=== PATIENT | male | born 1975 | race Caucasian/White ===

== ENCOUNTER → 2019-05-15 12:11 | Outpatient (CLI) | payer MEDICARE, MEDICAID, SELFPAY ==
[2019-05-15 13:05] LABS: Basophils % 0.4 % (0.1-2.0); Eosinophils # 0.1 K/mm3 (0.0-0.4); Eosinophils % 0.6 % (0.1-12.0); Hematocrit 48.8 % (42.0-52.0); Hemoglobin 16.1 g/dL (14.1-18.0); Lymphocytes # 0.9 K/mm3 (0.7-4.5); Lymphocytes % 10.2 % (10-50); Mean Corpuscular HGB Conc 32.9 g/dL (31.8-35.4); Mean Corpuscular Hemoglobin 36.5 pg (27.0-31.2); Mean Corpuscular Volume 110.9 fl (80-94); Mean Platelet Volume 7.6 fl (7.4-10.4); Monocytes # 0.9 K/mm3 (0.1-1.0); Monocytes % 9.7 % (1.7-9.3); Neutrophils # 7.2 K/mm3 (1.8-7.8); Neutrophils % 79.1 % (37.0-80.0); Platelet Count 450 K/mm3 (142-424); Red Cell Distribution Width 12.1 % (11.5-17.5); White Blood Count 9.1 K/mm3 (4.8-10.8)
[2019-05-15 14:01] LABS: Hemoglobin A1C 5.2 % (0.0-7.0)
[2019-05-15 14:06] LABS: Alanine Aminotransferase 117 U/L (12-78); Albumin Level 4.2 gm/dL (3.4-5.0); Albumin/Globulin Ratio 1.2 (1.1-1.8); Alkaline Phosphatase 54 U/L (46-116); Anion Gap 11.9 mEq/L (5-15); Aspartate Amino Transferase 82 U/L (15-37); Bilirubin,Total 2.1 mg/dL (0.2-1.0); Blood Urea Nitrogen 4 mg/dL (7-18); Calcium 9.8 mg/dL (8.5-10.1); Carbon Dioxide 32 mmol/L (21.0-32.0); Chloride 103 mmol/L (98-107); Chol/HDL Ratio 3.1 (1-3.5); Cholesterol 172 mg/dL (140-200); Estimated Glomerular Filt Rate 145 ml/min (>60); GFR (African American) 176 ML/MIN (>60); Globulin 3.5 gm/dl (1.3-3.2); Glucose 106 mg/dL (74-106); HDL Cholesterol 56 mg/dL (27-67); LDL Cholesterol 103 mg/dL (0-130); Potassium 3.9 mmoL/L (3.5-5.1); Sodium 143 mmol/L (136-145); Total Protein,Serum 7.7 gm/dL (6.4-8.2); Triglycerides 67 mg/dL (30-200); VLDL Cholesterol 13 mg/dL (0-40)
== END ==
DX: F20.0 Paranoid schizophrenia (principal); Z79.899 Other long term (current) drug therapy
CPT/HCPCS: 36415; 80053; 80061; 83036; 85025

== ENCOUNTER 2019-12-13 12:39 | Emergency (ER) | payer MEDICARE, MEDICAID, SELFPAY ==
[2019-12-13 12:41] VITALS: BP 145/103; PULSE 123; RESP 16; TEMP 37.2; O2SAT 98; BMI 20.3
--- NOTE | 2019-12-13 12:56 | XR_ITS ---
PROCEDURE: XR FOOT RT MIN 3V CLINICAL INDICATION: fall COMPARISON: XR TIBIA FIBULA RT 2V from 12/13/2019 FINDINGS: No fracture or dislocation. No lytic or blastic change. There is normal mineralization. The joint spaces are well-preserved. No significant degenerative/arthritic changes. No erosive changes evident. Other findings:None. IMPRESSION: Negative foot Dictated by: James Gilmore MD 12/13/2019 13:40 Electronically signed by James Gilmore MD in [place] 12/13/2019 13:40
--- NOTE | 2019-12-13 12:56 | XR_ITS ---
PROCEDURE: XR ANKLE RT MIN 3V CLINICAL INDICATION: fall posttraumatic pain and swelling COMPARISON: XR TIBIA FIBULA RT 2V from 12/13/2019 XR FOOT RT MIN 3V from 12/13/2019 FINDINGS: Soft tissue swelling is present at the lateral ankle. There is some cortical regularity involving the tip of the fibula most obvious on the AP view of the tib fib suspicious for nondisplaced fracture. CT or follow-up exam may confirm. The ankle mortise is preserved. No other significant anomalies are evident. IMPRESSION: Possible nondisplaced fracture of the distal fibula with overlying soft tissue swelling Dictated by: James Gilmore MD 12/13/2019 13:38 Electronically signed by James Gilmore MD in [place] 12/13/2019 13:38
--- NOTE | 2019-12-13 12:57 | XR_ITS ---
PROCEDURE: XR KNEE RT 3V CLINICAL INDICATION: fall Pain COMPARISON: No exams were available for comparison FINDINGS: No fracture or dislocation. No lytic or blastic change. There is normal mineralization. The joint spaces are well-preserved. No significant degenerative/arthritic changes. No erosive changes evident. Other findings:None. IMPRESSION: No acute findings. Dictated by: James Gilmore MD 12/13/2019 13:39 Electronically signed by James Gilmore MD in [place] 12/13/2019 13:39
--- NOTE | 2019-12-13 13:39 | HMH.EDGENADL ---
ED Disposition Clinical Impression: Avulsion fracture of lateral malleolus Qualifiers: Encounter type: initial encounter Fracture type: closed Laterality: right Qualified Code(s): S82.61XA - Displaced fracture of lateral malleolus of right fibula, initial encounter for closed fracture Right ankle sprain Qualifiers: Encounter type: initial encounter Involved ligament of ankle: unspecified ligament Qualified Code(s): S93.401A - Sprain of unspecified ligament of right ankle, initial encounter Disposition: Home, Self-Care Condition on Discharge: Good Instructions: How to Use Crutches, DI for Ankle Fracture, DI for Ankle Sprain, How to Take Care of Your Splint Additional Instructions: Additional instructions for FRACTURED (BROKEN) BONE: See Dr. Braun as soon as possible for further evaluation. Use crutches. No weightbearing on your right foot. Treat your splint like you would a cast: Do not get it wet (cover with a plastic bag while bathing or showering). If the splint feels too tight, you may loosen the edmond wrap covering it, but do not remove the splint. You may ice the fracture by applying an ice pack over the top of the splint, without removing the splint. Return to an emergency department immediately if you have uncontrollable pain, loss of feeling or inability to move your injured extremity. Additional instructions for CONTROLLED SUBSTANCES: You have been prescribed a medication that is a controlled substance. Controlled substances include pain medications known as opiates and sedative nerve medications known as benzodiazepines. Tramadol, fioricet, and gabapentin are also controlled substances. Some common opiates include: Codeine (such as Tylenol #3) Hydrocodone (Vicodin, Lortab, Lorcet, [place]) Oxycodone (Percocet, Percodan, Oxycodone, Oxy IR) Some common benzodiazepines include: Diazepam (Valium) Lorazepam (Ativan) Alprazolam (Xanax) Clonazepam (Klonopin) Oxazepam (Serax) All of these controlled substances are highly addictive and frequently abused. Misuse can and frequently does lead to addiction as well as overdose and . Medication should be stored in a locked cabinet or other secure storage unit. Do not store the medication in a motor vehicle. Short term supplies, 3 days or less, are prescribed because of the highly addictive nature of the medication. Any of the controlled substance medication NOT taken should be disposed of properly and NOT SAVED. The recommended method of disposing of unused medications is: Place the medicines in a sealable plastic bag. If the medicine is a solid, crush it or add water to dissolve it. Add something undesirable (cat litter, coffee grounds, etc.) Dispose of sealed bag in household trash Do not flush or pour unused medicines down a sink or drain. Controlled substances should not be shared, given away or sold. Because of the addictive nature and frequent abuse, these medications are sometimes stolen. These medications should be kept in a safe place where they cannot be stolen. Do not keep them in your car or purse. Lost or stolen prescriptions for controlled substances WILL NOT BE REFILLED in this emergency department, regardless of whether a police report was filed. Prescriptions: Hydrocod/Acet 5/325 mg [[place] 5/325mg tablet] 1 tab PO Q6HP PRN #10 tab PRN Reason: Pain Transmission Status: Sent to [facility] Referrals: Provider,MD Carl [Primary Care Provider] - Nora Braun MD [Physician] - - Critical Care Critical Care Time: No Attestation: On 12/13/19, the high probability of a clinically significant, sudden or life threatening deterioration of the following system(s) required my full and direct attention, intervention and personal management. The time I documented below is in addition to time spent performing reported procedures but includes the following listed in this critical care notation. Medical Decision Wendy
[2019-12-13 14:26] VITALS: BP 135/74; PULSE 102; RESP 16; TEMP 36.6; O2SAT 98
== END 2019-12-13 14:28 | disposition home or self-care (01) ==
PROVIDERS: Emergency Provider Emergency Medicine
DX: S93.401A Sprain of unspecified ligament of right ankle, initial encounter (principal); W01.0XXA Fall on same level from slipping, tripping and stumbling without subsequent striking against object, initial encounter; Y92.018 Other place in single-family (private) house as the place of occurrence of the external cause; F17.210 Nicotine dependence, cigarettes, uncomplicated
CPT/HCPCS: 29515; 73562; 73590; 73610; 73630; 99284

== ENCOUNTER 2019-12-17 12:18 | Outpatient (RCR) | payer MEDICARE, MEDICAID, SELFPAY | END 2019-12-17 12:45 | disposition home or self-care (01) | LOC: PT 12:18 | PROVIDERS: Visit Provider Orthopaedic Surgery | DX: S93.401A Sprain of unspecified ligament of right ankle, initial encounter (principal) ==

== ENCOUNTER → 2019-12-25 10:54 | Outpatient (CLI) | payer MEDICARE, MEDICAID, SELFPAY ==
[2019-12-25 11:28] LABS: Basophils % 0.5 % (0.1-2.0); Eosinophils % 0.6 % (0.1-12.0); Hematocrit 45.5 % (42.0-52.0); Hemoglobin 15.6 g/dL (14.1-18.0); Lymphocytes # 0.7 K/mm3 (0.7-4.5); Lymphocytes % 12.3 % (10-50); Mean Corpuscular HGB Conc 34.3 g/dL (31.8-35.4); Mean Corpuscular Hemoglobin 37.5 pg (27.0-31.2); Mean Corpuscular Volume 109.4 fl (80-94); Mean Platelet Volume 7.7 fl (7.4-10.4); Monocytes # 0.6 K/mm3 (0.1-1.0); Monocytes % 10.9 % (1.7-9.3); Neutrophils # 4.4 K/mm3 (1.8-7.8); Neutrophils % 75.6 % (37.0-80.0); Platelet Count 217 K/mm3 (142-424); Red Blood Count 4.16 M/mm3 (4.60-6.20); Red Cell Distribution Width 13.6 % (11.5-17.5); White Blood Count 5.9 K/mm3 (4.8-10.8)
[2019-12-25 12:46] LABS: Alanine Aminotransferase 61 U/L (12-78); Albumin/Globulin Ratio 1.4 (1.1-1.8); Alkaline Phosphatase 104 U/L (38-126); Anion Gap 16.6 mEq/L (5-15); Aspartate Amino Transferase 181 U/L (17-59); Bilirubin,Total 1.4 mg/dl (0.2-1.3); Blood Urea Nitrogen 4 mg/dl (9-20); Calcium 9.7 mg/dl (8.4-10.2); Carbon Dioxide 28 mmol/L (22.0-30.0); Chloride 98 mmol/L (98-107); Cholesterol 279 mg/dl (140-200); Estimated Glomerular Filt Rate 145 ml/min (>60); GFR (African American) 176 ML/MIN (>60); Globulin 3.5 g/dL (1.3-3.2); Glucose 103 mg/dl (74-100); Potassium 4.6 mmoL/L (3.5-5.1); Sodium 138 mmol/L (136-145); Total Protein,Serum 8.5 g/dl (6.3-8.2); Triglycerides 57 mg/dl (30-150); VLDL Cholesterol 11 mg/dL (0-40)
[2019-12-25 12:55] LABS: Chol/HDL Ratio 1.8 (1-3.5); HDL Cholesterol 152 mg/dl (40-60)
[2019-12-25 13:58] LABS: Hemoglobin A1C 5.1 % (4.0-6.0)
== END ==
PROVIDERS: Visit Provider Nurse Practitioner Psychiatric/Mental Health
DX: F20.0 Paranoid schizophrenia (principal); Z79.899 Other long term (current) drug therapy
CPT/HCPCS: 36415; 80053; 80061; 83036; 85025

== ENCOUNTER → 2019-12-31 13:04 | Outpatient (CLI) | payer MEDICARE, MEDICAID, SELFPAY ==
--- NOTE | 2019-12-31 13:15 | XR_ITS ---
PROCEDURE: XR ANKLE RT MIN 3V CLINICAL INDICATION: Ankle sprain FU COMPARISON: FINDINGS: There are no interval changes. Subtle cortical irregularity of the distal fibula is again noted with overlying soft tissue edema. Ankle mortise is intact. IMPRESSION: Subtle cortical irregularity of the distal fibular cortex which could represent cortical infraction injury, lateral soft tissue edema Dictated by: Juan C Harris 12/31/2019 14:46 Electronically signed by Juan C Harris in [place] 12/31/2019 14:46
== END ==
PROVIDERS: PCP Orthopaedic Surgery; Visit Provider Orthopaedic Surgery
DX: S93.401A Sprain of unspecified ligament of right ankle, initial encounter (principal)
CPT/HCPCS: 73610

== ENCOUNTER 2020-04-11 15:13 | Emergency (ER) | payer MEDICARE, MEDICAID, SELFPAY ==
[2020-04-11 15:55] VITALS: BP 123/86; PULSE 74; RESP 14; TEMP 36.7; O2SAT 98; BMI 19.9
--- NOTE | 2020-04-11 16:31 | HMH.EDUTC ---
[facility] [place] Clinical Impression: Pustular acne Disposition: Home, Self-Care Condition on Discharge: Good Instructions: Hidradenitis Suppurativa Additional Instructions: Use the medications as directed. Follow up with your primary care doctor. GO TO THE ER FOR ANY WORSENING SYMPTOMS OR CONCERNS. Prescriptions: Minocycline HCl [Minocycline HCl 100mg Tab*] 100 mg PO BID 14 Days #28 tab Transmission Status: Received by [facility] Referrals: PCP,No [Primary Care Provider] - Time of Disposition: 16:38 Medical Decision Making - Medical Records Medical records reviewed: No: I reviewed the patient's medical records. - Suraj Inquiry Pt receiving controlled substance: No Vital Signs: 04/11/20 15:55 04/11/20 17:22 Temperature 98.1 F 98.1 F Temperature Source Oral Oral Pulse Rate 74 Pulse Rate [Radial] 74 Respiratory Rate 14 14 Blood Pressure 123/86 Blood Pressure [Right Arm] 123/86 Blood Pressure Mean [Right Arm] 98 Blood Pressure Source Automatic Cuff Blood Pressure Source [Right Arm] Automatic Cuff Blood Pressure Position Sitting Blood Pressure Position [Right Arm] Sitting 02 Sat by Pulse Oximetry 98 Oxygen Delivery Method Room Air Room Air [facility] [place] - General Stated complaint: Rash on face Time Seen by Provider: 04/11/20 16:31 Mode of Arrival: Ambulatory Source of Information: Patient Limitations: No Limitations Description of Symptoms (Recalled from Triage Doc. by RN): 2-3 weeks ago rash to face that comes and goes. HEENT Symptoms (Recalled from RN notes): No Resp Symptoms (Recalled from RN notes): No Skin Symptoms (Recalled from RN notes): Yes MS Symptoms (Recalled from RN notes): No Functional Status (Recalled from RN notes): wnl - History of Present Illness Provider Complaint: he has a history of recurrent skin irritation of his face. In the past he has had to take doxycycline for these out breaks. He states that he has been out of refills on this. - Related Data Home Medications Medication Instructions Recorded Confirmed olanzapine 5 mg tablet 5 mg PO DAILY 12/17/19 12/31/19 trazodone 100 mg tablet 100 mg PO DAILY 12/17/19 12/31/19 Previous Rx's Medication Instructions Recorded Ketorolac Tromethamine [Toradol 10 mg PO Q6H 5 Days #20 tab 06/15/18 10mg tablet] Doxycycline Hyclate [Doxycycline 100 mg PO Q12 10 Days #20 cap 04/23/19 100mg Capsule] Minocycline HCl [Minocycline HCl 100 mg PO BID 14 Days #28 tab 09/13/19 100mg Tab*] Mupirocin [Bactroban 2% Ointment 1 applicatio TP TID 7 Days #1 tube 09/13/19 22gm tube] Hydrocod/Acet 5/325 mg [[place] 1 tab PO Q6HP PRN #10 tab 12/13/19 5/325mg tablet] Minocycline HCl [Minocycline HCl 100 mg PO BID 14 Days #28 tab 04/11/20 100mg Tab*] Allergies Allergy/AdvReac Type Severity Reaction Status Date / Time amoxicillin Allergy Verified 12/31/19 14:22 Penicillins Allergy Verified 12/31/19 14:22 - Worker's Comp Is this a Worker's Comp case?: No [facility] History - Hepatitis A Screen Drug use history?: No High risk sexual behaviors?: No History of sexually transmitted infection?: No Currently employed?: No Childcare worker?: No Do you have indoor plumbing?: Yes Do you have electricity?: Yes Attestation statement:: This patient has been screened for Hepatitis A risk factors. I have reviewed the patient's past medical history: Yes Medical History: Reports:: Anxiety, Depression Other Medical History: Reports: Other (ETOH abuse) Other Surgeries: Yes: Appendectomy - Social History Smoking Status: Current every day smoker Tobacco Type: smokeless tobacco # Packs/Day (cigarettes): 0 Alcohol Intake: never Alcohol Intake Frequency:: a few times a week Substance Use Type: marijuana Occupational Status: other Housing: house Household Members: family - Psychiatric History Pschychiatric History:: Reports:: Anxiety, Depression Family Hx:: No significant family histo
[2020-04-11 17:22] VITALS: BP 123/86; PULSE 74; RESP 14; TEMP 36.7; O2SAT 98
== END 2020-04-11 17:23 | disposition home or self-care (01) ==
PROVIDERS: Emergency Provider Nurse Practitioner Family
DX: L70.0 Acne vulgaris (principal); F41.8 Other specified anxiety disorders; F10.10 Alcohol abuse, uncomplicated; F17.290 Nicotine dependence, other tobacco product, uncomplicated; Z88.0 Allergy status to penicillin; Z79.899 Other long term (current) drug therapy
CPT/HCPCS: 99201

== ENCOUNTER → 2020-04-16 10:56 | Outpatient (CLI) | payer MEDICARE, SELFPAY ==
[2020-04-16 11:33] LABS: Basophils # 0.1 K/mm3 (0-0.2); Basophils % 0.6 % (0.1-2.0); Eosinophils # 0.2 K/mm3 (0.0-0.4); Eosinophils % 2.4 % (0.1-12.0); Hematocrit 47.4 % (42.0-52.0); Hemoglobin 15.6 g/dL (14.1-18.0); Lymphocytes # 1.5 K/mm3 (0.7-4.5); Lymphocytes % 16.2 % (10-50); Mean Corpuscular HGB Conc 32.9 g/dL (31.8-35.4); Mean Corpuscular Hemoglobin 34.9 pg (27.0-31.2); Mean Corpuscular Volume 106.1 fl (80-94); Mean Platelet Volume 7.2 fl (7.4-10.4); Monocytes # 0.9 K/mm3 (0.1-1.0); Monocytes % 8.9 % (1.7-9.3); Neutrophils # 6.9 K/mm3 (1.8-7.8); Neutrophils % 71.9 % (37.0-80.0); Platelet Count 424 K/mm3 (142-424); Red Blood Count 4.47 M/mm3 (4.60-6.20); Red Cell Distribution Width 12.7 % (11.5-17.5); White Blood Count 9.5 K/mm3 (4.8-10.8)
[2020-04-16 12:03] LABS: Chloride 102 mmol/L (98-107); Potassium 4.1 mmoL/L (3.5-5.1); Sodium 142 mmol/L (136-145)
[2020-04-16 12:05] LABS: Blood Urea Nitrogen 9 mg/dl (9-20); Estimated Glomerular Filt Rate 121 ml/min (>60)
[2020-04-16 12:06] LABS: Alanine Aminotransferase 23 U/L (12-78); Albumin/Globulin Ratio 1.3 (1.1-1.8); Alkaline Phosphatase 68 U/L (38-126); Anion Gap 13.1 mEq/L (5-15); Aspartate Amino Transferase 27 U/L (17-59); Bilirubin,Total 1.2 mg/dl (0.2-1.3); Calcium 9.7 mg/dl (8.4-10.2); Carbon Dioxide 31 mmol/L (22.0-30.0); Chol/HDL Ratio 4.7 (1-3.5); Cholesterol 180 mg/dl (140-200); GFR (African American) 146 ML/MIN (>60); Glucose 97 mg/dl (74-100); HDL Cholesterol 38 mg/dl (40-60); Triglycerides 120 mg/dl (30-150); VLDL Cholesterol 24 mg/dL (0-40)
[2020-04-16 12:17] LABS: Direct LDL Cholesterol 117.57 mg/dL (100-129)
[2020-04-16 12:59] LABS: Hemoglobin A1C 5.5 % (4.0-6.0)
== END ==
PROVIDERS: Visit Provider Nurse Practitioner Psychiatric/Mental Health
DX: F20.0 Paranoid schizophrenia (principal); Z79.899 Other long term (current) drug therapy
CPT/HCPCS: 36415; 80053; 80061; 83036; 85025

== ENCOUNTER → 2020-11-10 10:28 | Outpatient (POV) | payer MEDICARE, MEDICAID, SELFPAY ==
[2020-11-10 13:52] LABS: Basophils % 0.2 % (0.1-2.0); Eosinophils % 0.3 % (0.1-12.0); Hematocrit 44.8 % (42.0-52.0); Hemoglobin 15.5 g/dL (14.1-18.0); Lymphocytes # 0.7 K/mm3 (0.7-4.5); Lymphocytes % 9.8 % (10-50); Mean Corpuscular HGB Conc 34.6 g/dL (31.8-35.4); Mean Corpuscular Hemoglobin 36.2 pg (27.0-31.2); Mean Corpuscular Volume 104.5 fl (80-94); Mean Platelet Volume 9.5 fl (7.4-10.4); Monocytes # 0.8 K/mm3 (0.1-1.0); Monocytes % 11.2 % (1.7-9.3); Neutrophils # 5.5 K/mm3 (1.8-7.8); Neutrophils % 78.6 % (37.0-80.0); Platelet Count 270 K/mm3 (142-424); Red Blood Count 4.28 M/mm3 (4.60-6.20); Red Cell Distribution Width 13.2 % (11.5-17.5); White Blood Count 7.1 K/mm3 (4.8-10.8)
[2020-11-10 14:28] LABS: Alanine Aminotransferase 104 U/L (12-78); Albumin Level 4.6 g/dl (3.5-5.0); Albumin/Globulin Ratio 1.5 (1.1-1.8); Alkaline Phosphatase 99 U/L (38-126); Anion Gap 11.9 mEq/L (5-15); Aspartate Amino Transferase 164 U/L (17-59); Bilirubin,Total 1.8 mg/dl (0.2-1.3); Blood Urea Nitrogen 4 mg/dl (9-20); Calcium 9.4 mg/dl (8.4-10.2); Carbon Dioxide 26 mmol/L (22.0-30.0); Chloride 106 mmol/L (98-107); Estimated Glomerular Filt Rate 121 ml/min (>60); GFR (African American) 146 ML/MIN (>60); Glucose 105 mg/dl (74-100); Potassium 3.9 mmoL/L (3.5-5.1); Sodium 140 mmol/L (136-145); Total Protein,Serum 7.6 g/dl (6.3-8.2)
[2020-11-10 15:03] LABS: Ferritin 427 ng/ml (17.9-464)
[2020-11-10 15:21] LABS: Total Iron Binding Capacity 221 ug/dL (261-462)
[2020-11-10 16:13] LABS: Iron 427 ug/dL (49-181)
[2020-11-10 16:42] LABS: INR 0.91 (0.9-1.1); Prothrombin Time 10.8 seconds (10.1-12.5)
[2020-11-12 13:06] LABS: Immunoglobulin A, Qn 205 mg/dL (90-386); Immunoglobulin G, Qn 1223 mg/dL (603-1613)
[2020-11-13 12:48] LABS: Deamidated Gliadin Abs, IgA 4 units (0-19); Deamidated Gliadin Abs, IgG 2 units (0-19); Endomysial IgA Antibody Negative (Negative); Immunoglobulin M, Qn 150 mg/dL (20-172); Tissue Transglutaminase IgA Ab <2 U/mL (0-3); Tissue Transglutaminase IgG Ab 6 U/mL (0-5)
[2020-11-14 00:07] LABS: ALT (SGPT) P5P 99 IU/L (0-55); AST (SGOT) P5P 148 IU/L (0-40); Alpha 2-Macroglobulins, Qn 164 mg/dL (110-276); Apolipoprotein A-1 151 mg/dL (101-178); Bilirubin, Total 0.8 mg/dL (0.0-1.2); Cholesterol, Total 220 mg/dL (100-199); Fibrosis Score 0.42 (0.00-0.21); Fibrosis Stage F1-F2 (.); GGT 237 IU/L (0-65); Glucose 96 mg/dL (65-99); Haptoglobin 98 mg/dL (23-355); Steatosis Score 0.62 (0.00-0.30); Triglycerides 96 mg/dL (0-149)
[2020-11-14 10:50] LABS: Reticulin IgA Antibody Negative titer (Neg:<1:2.5)
== END ==
PROVIDERS: Visit Provider Nurse Practitioner Family
DX: F10.10 Alcohol abuse, uncomplicated (principal); R94.5 Abnormal results of liver function studies; R74.8 Abnormal levels of other serum enzymes
CPT/HCPCS: 36415; 80053; 82728; 82784; 83516; 83540; 83550; 85025; 85610; 86255; 86256

== ENCOUNTER → 2020-11-19 08:20 | Outpatient (CLI) | payer MEDICARE, MEDICAID, SELFPAY ==
--- NOTE | 2020-11-19 08:22 | US_ITS ---
PROCEDURE: US ABDOMEN LIMITED CLINICAL INDICATION: ALCOHOL ABUSE,ABN LFT COMPARISON: No exams were available for comparison FINDINGS: PANCREAS: The visualized pancreas is unremarkable. The tail is partially obscured. LIVER: Diffuse fatty infiltration of the liver is noted. No focal liver lesions within the limitations of the study. no intrahepatic biliary ductal dilatation evident. There is appropriate direction of blood flow within a non dilated portal vein RIGHT KIDNEY: Unremarkable. Normal size and echogenicity. No hydronephrosis GALLBLADDER: There is a focal hyperechoic lesion noted within the gallbladder in the non dependent portion measuring 0.4 centimeters, likely represents a gallbladder polyp. Gallbladder wall thickening measuring up to 0.3 centimeters noted. The common bile duct measures 0.3 centimeters. IMPRESSION: Hepatic steatosis. Findings are suggestive of gallbladder polyp measuring 4 millimeters. Dictated by: Nuzhat Jon 11/19/2020 11:40 Nuzhat Jon in [place] 11/19/2020 11:40
== END ==
PROVIDERS: PCP Nurse Practitioner Family; Visit Provider Nurse Practitioner Family
DX: R94.5 Abnormal results of liver function studies (principal); F10.10 Alcohol abuse, uncomplicated
CPT/HCPCS: 76705

== ENCOUNTER 2021-02-22 11:27 | Emergency (ER) | payer MEDICARE, MEDICAID, SELFPAY ==
--- NOTE | 2021-02-22 11:54 | XR_ITS ---
PROCEDURE INFORMATION: Exam: XR Right Ankle Exam date and time: 02/22/2021 11:54 AM Age: 46 years old Clinical indication: Injury or trauma; Blunt trauma; Patient HX: Right ankle pain due to fall. ; Additional info: Fall, ankle and foot pain TECHNIQUE: Imaging protocol: XR Right ankle. Views: 3 or more views. COMPARISON: DX XR ANKLE RT MIN 3V 12/31/2019 1:32 PM FINDINGS: Bones/joints: There is no evidence of acute fracture.There is no evidence of malalignment or dislocation. There may be healing/healed avulsion fracture from the distal fibula. Soft tissues: Mild bimalleolar soft tissue swelling IMPRESSION: 1. There is no evidence of acute fracture.There is no evidence of malalignment or dislocation. 2. There may be healing/healed avulsion fracture from the distal fibula.
--- NOTE | 2021-02-22 11:54 | XR_ITS ---
PROCEDURE INFORMATION: Exam: XR Left Knee Exam date and time: 02/22/2021 11:54 AM Age: 46 years old Clinical indication: Injury or trauma; Blunt trauma; Patient HX: Left knee pain due to fall. ; Additional info: Fall, knee pain TECHNIQUE: Imaging protocol: XR Left knee. Views: 3 views. COMPARISON: No relevant prior studies available. FINDINGS: Bones/joints: There is no evidence of acute fracture.There is no evidence of malalignment or dislocation. Soft tissues: Normal. IMPRESSION: There is no evidence of acute fracture.There is no evidence of malalignment or dislocation.
--- NOTE | 2021-02-22 11:54 | XR_ITS ---
PROCEDURE INFORMATION: Exam: XR Right Foot Exam date and time: 02/22/2021 11:54 AM Age: 46 years old Clinical indication: Injury or trauma; Blunt trauma; Patient HX: Right foot pain due to fall. ; Additional info: Ankle and foot pain, fall TECHNIQUE: Imaging protocol: XR Right foot. Views: 3 or more views. COMPARISON: CR XR FOOT RT MIN 3V 12/13/2019 1:06 PM FINDINGS: Bones/joints: There is no evidence of acute fracture.There is no evidence of malalignment or dislocation. Soft tissues: Normal. IMPRESSION: There is no evidence of acute fracture.There is no evidence of malalignment or dislocation.
--- NOTE | 2021-02-22 11:56 | HMH.EDUTC ---
[facility] [place]ression: Right foot pain Right ankle pain Qualifiers: Chronicity: acute Qualified Code(s): M25.571 - Pain in right ankle and joints of right foot Left knee pain Qualifiers: Chronicity: acute Qualified Code(s): M25.562 - Pain in left knee Ankle sprain Qualifiers: Encounter type: initial encounter Involved ligament of ankle: unspecified ligament Laterality: right Qualified Code(s): S93.401A - Sprain of unspecified ligament of right ankle, initial encounter Fracture of fifth toe, right, closed Qualifiers: Encounter type: initial encounter Qualified Code(s): S92.501A - Displaced unspecified fracture of right lesser toe(s), initial encounter for closed fracture Disposition: Still a Patient Condition on Discharge: Good Instructions: DI for Toe Fracture, DI for Knee Pain Additional Instructions: Rest the extremity, apply ice for 15 minutes as tolerated three or four times per day, Elevate the extremity as tolerated while you are resting. Take ibuprofen for pain. I sent in a prescription to your pharmacy. Follow up with Dr. Garza (podiatry). I put in a referral but you need to call her office and schedule an appointment. Follow up with your regular doctor. GO TO THE ER FOR ANY WORSENING SYMPTOMS Prescriptions: Ibuprofen [Ibuprofen 600mg Tablet] 600 mg PO Q6HP PRN #30 tab PRN Reason: Mild Pain Transmission Status: Received by [email or web address] Referrals: Betsy Felix APRN [Primary Care Provider] - Hali Garza DPM [Staff Physician] - Time of Disposition: 13:02 Medical Decision Making - Medical Records Medical records reviewed: No: I reviewed the patient's medical records. - Suraj Inquiry Pt receiving controlled substance: No Vital Signs: 02/22/21 12:58 02/22/21 13:02 Temperature 97.9 F 98 F Temperature Source Oral Pulse Rate 85 Pulse Rate [Left] 89 Respiratory Rate 20 18 Blood Pressure 0/0 L Blood Pressure [Right Arm] 127/82 Blood Pressure Mean [Right Arm] 97 02 Sat by Pulse Oximetry 99 - Radiology Data #1 Image(s): Foot/Toes Image Reviewed: Yes I reviewed the patient's radiology image, Yes I have reviewed radiologist's interpretation Preliminary Findings: No Fracture Seen PROCEDURE INFORMATION: Exam: XR Right Foot Exam date and time: 02/22/2021 11:54 AM Age: 46 years old Clinical indication: Injury or trauma; Blunt trauma; Patient HX: Right foot pain due to fall. ; Additional info: Ankle and foot pain, fall TECHNIQUE: Imaging protocol: XR Right foot. Views: 3 or more views. COMPARISON: CR XR FOOT RT MIN 3V 12/13/2019 1:06 PM FINDINGS: Bones/joints: There is no evidence of acute fracture.There is no evidence of malalignment or dislocation. Soft tissues: Normal. IMPRESSION: There is no evidence of acute fracture.There is no evidence of malalignment or dislocation. #2 Image(s): Ankle Image Reviewed: Yes I reviewed the patient's radiology image, Yes I have reviewed radiologist's interpretation Preliminary Findings: Abnormal, No Fracture Seen PROCEDURE INFORMATION: Exam: XR Right Ankle Exam date and time: 02/22/2021 11:54 AM Age: 46 years old Clinical indication: Injury or trauma; Blunt trauma; Patient HX: Right ankle pain due to fall. ; Additional info: Fall, ankle and foot pain TECHNIQUE: Imaging protocol: XR Right ankle. Views: 3 or more views. COMPARISON: DX XR ANKLE RT MIN 3V 12/31/2019 1:32 PM FINDINGS: Bones/joints: There is no evidence of acute fracture.There is no evidence of malalignment or dislocation. There may be healing/healed avulsion fracture from the distal fibula. Soft tissues: Mild bimalleolar soft tissue swelling IMPRESSION: 1. There is no evidence of acute fracture.There is no evidence of malalignment or dislocation. 2. There may be healing/healed avulsion fracture from the dista
[2021-02-22 12:58] VITALS: BP 127/82; PULSE 89; RESP 20; TEMP 36.6; O2SAT 99; BMI 22.2
[2021-02-22 13:02] VITALS: BP 0/0; PULSE 85; RESP 18; TEMP 36.6
== END 2021-02-22 13:10 | disposition still patient (30) ==
PROVIDERS: Emergency Provider Nurse Practitioner Family; PCP Nurse Practitioner Family
DX: S93.401A Sprain of unspecified ligament of right ankle, initial encounter (principal); S92.501A Displaced unspecified fracture of right lesser toe(s), initial encounter for closed fracture; W01.0XXA Fall on same level from slipping, tripping and stumbling without subsequent striking against object, initial encounter; Y92.019 Unspecified place in single-family (private) house as the place of occurrence of the external cause; F41.8 Other specified anxiety disorders
CPT/HCPCS: 29515; G0463; 73562; 73610; 73630; 99202

== ENCOUNTER 2021-04-04 15:17 | Emergency (ER) | payer MEDICARE, MEDICAID, SELFPAY ==
[2021-04-04 15:40] VITALS: BP 110/73; PULSE 120; RESP 20; TEMP 36.9; O2SAT 98; BMI 22.2
--- NOTE | 2021-04-04 15:52 | XR_ITS ---
PROCEDURE INFORMATION: Exam: XR Left Knee Exam date and time: 04/04/2021 3:52 PM Age: 46 years old Clinical indication: Left; Patient HX: Pain after a fall a couple weeks ago, yesterday twisted knee, pain medially TECHNIQUE: Imaging protocol: XR Left knee. Views: 3 views. COMPARISON: CR XR KNEE LT 3V 02/22/2021 12:03 PM FINDINGS: Bones/joints: There is no evidence of acute fracture.There is no evidence of malalignment or dislocation. Soft tissues: Normal. IMPRESSION: There is no evidence of acute fracture.There is no evidence of malalignment or dislocation.
--- NOTE | 2021-04-04 16:21 | HMH.EDUTC ---
[facility] – [place] Clinical Impression: Left anterior knee pain Disposition: Home, Self-Care Condition on Discharge: Good Instructions: DI for Knee Pain Prescriptions: methylPREDNISolone [Medrol 4mg tab] 4 mg PO DIRECTED #21 tab Transmission Status: Pending to [facility] Referrals: Betsy Felix APRN [Primary Care Provider] - Time of Disposition: 16:37 Medical Decision Making - Suraj Inquiry Pt receiving controlled substance: No Vital Signs: 04/04/21 15:40 Temperature 98.5 F Temperature Source Oral Pulse Rate [Right Brachial] 120 H Respiratory Rate 20 Blood Pressure [Right Arm] 110/73 Blood Pressure Mean [Right Arm] 85 Blood Pressure Source [Right Arm] Automatic Cuff Blood Pressure Position [Right Arm] Sitting 02 Sat by Pulse Oximetry 98 Oxygen Delivery Method Room Air Orders (Tests/Meds): ORDERS Category Date Time Status XR knee LT 3V Stat Exams 04/04/21 15:52 Taken - Radiology Data #1 Image(s): Knee Image Reviewed: Yes I reviewed the patient's radiology image Preliminary Findings: Abnormal (effusion) Medical Decision Narrative: Patient declined Depo Medrol or Toradol injection Requested Lortab 5, which was declined [facility] [place] HPI - General Stated complaint: Pop in left leg pain no accident Time Seen by Provider: 04/04/21 16:33 Mode of Arrival: Ambulatory Source of Information: Patient Limitations: No Limitations Description of Symptoms (Recalled from Triage Doc. by RN): PATIENT C/O PAIN AND POPPING TO LEFT KNEE HEENT Symptoms (Recalled from RN notes): No Resp Symptoms (Recalled from RN notes): No Skin Symptoms (Recalled from RN notes): No MS Symptoms (Recalled from RN notes): Yes Functional Status (Recalled from RN notes): WNL - History of Present Illness Provider Complaint: Patient knelt in floor last night and felt pop in his knee. Now knee is swollen, hot, painful. No redness. Onset (ago): day(s) (1) Location: left, lower extremity Relieving factors: immobilization Exacerbating factors: movement Treatments prior to arrival: none - Related Data Home Medications Medication Instructions Recorded Confirmed olanzapine 5 mg tablet 5 mg PO DAILY 12/17/19 12/31/19 trazodone 100 mg tablet 100 mg PO DAILY 12/17/19 12/31/19 Previous Rx's Medication Instructions Recorded Ketorolac Tromethamine [Toradol 10 mg PO Q6H 5 Days #20 tab 06/15/18 10mg tablet] Doxycycline Hyclate [Doxycycline 100 mg PO Q12 10 Days #20 cap 04/23/19 100mg Capsule] Minocycline HCl [Minocycline HCl 100 mg PO BID 14 Days #28 tab 09/13/19 100mg Tab*] Mupirocin [Bactroban 2% Ointment 1 applicatio TP TID 7 Days #1 tube 09/13/19 22gm tube] Hydrocod/Acet 5/325 mg [[place] 1 tab PO Q6HP PRN #10 tab 12/13/19 5/325mg tablet] Minocycline HCl [Minocycline HCl 100 mg PO BID 14 Days #28 tab 04/11/20 100mg Tab*] Ibuprofen [Ibuprofen 600mg 600 mg PO Q6HP PRN #30 tab 02/22/21 Tablet] methylPREDNISolone [Medrol 4mg 4 mg PO DIRECTED #21 tab 04/04/21 tab] Allergies Allergy/AdvReac Type Severity Reaction Status Date / Time amoxicillin Allergy Verified 12/31/19 14:22 Penicillins Allergy Verified 12/31/19 14:22 - Worker's Comp Is this a Worker's Comp case?: No [facility] History - Hepatitis A Screen Drug use history?: No High risk sexual behaviors?: No History of sexually transmitted infection?: No Currently employed?: No Childcare worker?: No Do you have indoor plumbing?: Yes Do you have electricity?: Yes Attestation statement:: This patient has been screened for Hepatitis A risk factors. I have reviewed the patient's past medical history: Yes Medical History: Reports:: Anxiety, Depression Other Medical History: Reports: Other (ETOH abuse) Other Surgeries: Yes: Appendectomy - Social History Smoking Status: Current every day smoker Tobacco Type: smokeless tobacco # Packs/Day (cigarettes): 0 Alcohol Intake: never Alcohol Intake F
[2021-04-04 16:40] VITALS: BP 110/73; PULSE 120; RESP 20; TEMP 36.9; O2SAT 98
== END 2021-04-04 16:53 | disposition home or self-care (01) ==
PROVIDERS: Emergency Provider Physician Assistant; PCP Nurse Practitioner Family
DX: M25.562 Pain in left knee (principal); F17.210 Nicotine dependence, cigarettes, uncomplicated; F41.8 Other specified anxiety disorders
CPT/HCPCS: G0463; 73562; 99202

== ENCOUNTER → 2021-07-29 13:54 | Outpatient (CLI) | payer MEDICARE, MEDICAID, SELFPAY ==
[2021-07-29 14:31] LABS: Basophils # 0.1 K/mm3 (0-0.2); Basophils % 0.6 % (0.1-2.0); Eosinophils # 0.1 K/mm3 (0.0-0.4); Eosinophils % 0.9 % (0.1-12.0); Hematocrit 44.5 % (42.0-52.0); Hemoglobin 14.7 g/dL (14.1-18.0); Lymphocytes # 1.7 K/mm3 (0.7-4.5); Lymphocytes % 17.5 % (10-50); Mean Corpuscular HGB Conc 33.1 g/dL (31.8-35.4); Mean Corpuscular Hemoglobin 36.1 pg (27.0-31.2); Mean Corpuscular Volume 108.9 fl (80-94); Mean Platelet Volume 8.3 fl (7.4-10.4); Monocytes % 10.3 % (1.7-9.3); Neutrophils # 6.9 K/mm3 (1.8-7.8); Neutrophils % 70.6 % (37.0-80.0); Platelet Count 389 K/mm3 (142-424); Red Blood Count 4.09 M/mm3 (4.60-6.20); Red Cell Distribution Width 12.7 % (11.5-17.5); White Blood Count 9.8 K/mm3 (4.8-10.8)
[2021-07-29 15:06] LABS: Alanine Aminotransferase 98 U/L (12-78); Albumin Level 4.7 g/dl (3.5-5.0); Albumin/Globulin Ratio 1.7 (1.1-1.8); Alkaline Phosphatase 53 U/L (38-126); Anion Gap 14.5 mEq/L (5-15); Aspartate Amino Transferase 72 U/L (17-59); Bilirubin,Total 1.6 mg/dl (0.2-1.3); Blood Urea Nitrogen 9 mg/dl (9-20); Calcium 9.5 mg/dl (8.4-10.2); Carbon Dioxide 27 mmol/L (22.0-30.0); Chloride 100 mmol/L (98-107); Estimated Glomerular Filt Rate 90 ml/min (>60); GFR (African American) 109 ML/MIN (>60); Globulin 2.8 g/dL (1.3-3.2); Glucose 107 mg/dl (74-100); Potassium 3.5 mmoL/L (3.5-5.1); Sodium 138 mmol/L (136-145); Total Protein,Serum 7.5 g/dl (6.3-8.2)
== END ==
PROVIDERS: PCP Nurse Practitioner Family; Visit Provider Nurse Practitioner Family
DX: R94.5 Abnormal results of liver function studies (principal); F10.10 Alcohol abuse, uncomplicated; K70.0 Alcoholic fatty liver
CPT/HCPCS: 36415; 80053; 85025

== ENCOUNTER → 2022-01-29 10:08 | Outpatient (CLI) | payer MEDICARE, MEDICAID, SELFPAY ==
[2022-01-29 10:45] LABS: Basophils % 0.4 % (0.1-2.0); Eosinophils # 0.1 K/mm3 (0.0-0.4); Eosinophils % 0.7 % (0.1-12.0); Hematocrit 40.1 % (42.0-52.0); Hemoglobin 13.8 g/dL (14.1-18.0); Lymphocytes # 1.2 K/mm3 (0.7-4.5); Lymphocytes % 15.2 % (10-50); Mean Corpuscular HGB Conc 34.4 g/dL (31.8-35.4); Mean Corpuscular Hemoglobin 35.5 pg (27.0-31.2); Mean Corpuscular Volume 103.1 fl (80-94); Mean Platelet Volume 7.2 fl (7.4-10.4); Monocytes # 0.8 K/mm3 (0.1-1.0); Monocytes % 10.7 % (1.7-9.3); Neutrophils # 5.7 K/mm3 (1.8-7.8); Neutrophils % 73.1 % (37.0-80.0); Platelet Count 375 K/mm3 (142-424); Red Blood Count 3.89 M/mm3 (4.60-6.20); Red Cell Distribution Width 12.6 % (11.5-17.5); White Blood Count 7.8 K/mm3 (4.8-10.8)
[2022-01-29 10:57] LABS: Chloride 105 mmol/L (98-107)
[2022-01-29 10:58] LABS: Potassium 3.5 mmoL/L (3.5-5.1); Sodium 139 mmol/L (136-145)
[2022-01-29 11:00] LABS: Alanine Aminotransferase 118 U/L (12-78); Aspartate Amino Transferase 89 U/L (17-59); Blood Urea Nitrogen 7 mg/dl (9-20); Estimated Glomerular Filt Rate 103 ml/min (>60); GFR (African American) 124 ML/MIN (>60)
[2022-01-29 11:01] LABS: Albumin Level 4.6 g/dl (3.5-5.0); Albumin/Globulin Ratio 1.6 (1.1-1.8); Alkaline Phosphatase 61 U/L (38-126); Anion Gap 12.5 mEq/L (5-15); Bilirubin,Total 1.5 mg/dl (0.2-1.3); Calcium 9.2 mg/dl (8.4-10.2); Carbon Dioxide 25 mmol/L (22.0-30.0); Globulin 2.8 g/dL (1.3-3.2); Glucose 111 mg/dl (74-100); Iron 62 ug/dL (49-181); Total Protein,Serum 7.4 g/dl (6.3-8.2)
[2022-01-29 11:11] LABS: Total Iron Binding Capacity 231 ug/dL (261-462)
[2022-01-29 11:38] LABS: Ferritin 367 ng/ml (17.9-464)
== END ==
PROVIDERS: PCP Nurse Practitioner Family; Visit Provider Nurse Practitioner Family
DX: R94.5 Abnormal results of liver function studies (principal); K70.9 Alcoholic liver disease, unspecified; K70.0 Alcoholic fatty liver; F10.10 Alcohol abuse, uncomplicated
CPT/HCPCS: 36415; 80053; 81256; 82728; 83540; 83550; 85025

== ENCOUNTER → 2022-08-06 10:47 | Outpatient (CLI) | payer MEDICARE, MEDICAID, SELFPAY ==
[2022-08-06 11:29] LABS: Basophils % 0.6 % (0.1-2.0); Eosinophils # 0.1 K/mm3 (0.0-0.4); Eosinophils % 1.3 % (0.1-12.0); Hematocrit 44.4 % (42.0-52.0); Hemoglobin 14.1 g/dL (14.1-18.0); Lymphocytes # 1.3 K/mm3 (0.7-4.5); Lymphocytes % 16.4 % (10-50); Mean Corpuscular HGB Conc 31.8 g/dL (31.8-35.4); Mean Corpuscular Hemoglobin 34.9 pg (27.0-31.2); Mean Corpuscular Volume 109.6 fl (80-94); Mean Platelet Volume 7.9 fl (7.4-10.4); Monocytes # 0.7 K/mm3 (0.1-1.0); Monocytes % 9.3 % (1.7-9.3); Neutrophils # 5.7 K/mm3 (1.8-7.8); Neutrophils % 72.5 % (37.0-80.0); Platelet Count 471 K/mm3 (142-424); Red Blood Count 4.05 M/mm3 (4.60-6.20); Red Cell Distribution Width 12.6 % (11.5-17.5); White Blood Count 7.9 K/mm3 (4.8-10.8)
[2022-08-06 12:38] LABS: Alanine Aminotransferase 96 U/L (12-78); Albumin Level 4.4 g/dl (3.5-5.0); Albumin/Globulin Ratio 1.4 (1.1-1.8); Alkaline Phosphatase 48 U/L (38-126); Anion Gap 12.3 mEq/L (5-15); Aspartate Amino Transferase 67 U/L (17-59); Bilirubin,Total 1.3 mg/dl (0.2-1.3); Blood Urea Nitrogen 9 mg/dl (9-20); Carbon Dioxide 29 mmol/L (22.0-30.0); Chloride 105 mmol/L (98-107); Estimated Glomerular Filt Rate 90 ml/min (>60); GFR (African American) 109 ML/MIN (>60); Globulin 3.1 g/dL (1.3-3.2); Glucose 104 mg/dl (74-100); Potassium 3.3 mmoL/L (3.5-5.1); Sodium 143 mmol/L (136-145); Total Protein,Serum 7.5 g/dl (6.3-8.2)
== END ==
PROVIDERS: PCP Nurse Practitioner Family; Visit Provider Nurse Practitioner Family
DX: F10.10 Alcohol abuse, uncomplicated (principal); K70.9 Alcoholic liver disease, unspecified; R94.5 Abnormal results of liver function studies
CPT/HCPCS: 36415; 80053; 85025

== ENCOUNTER → 2023-02-21 10:13 | Outpatient (CLI) | payer MEDICARE, MEDICAID, SELFPAY ==
[2023-02-21 10:46] LABS: Basophils % 0.3 % (0.1-2.0); Eosinophils # 0.1 K/mm3 (0.0-0.4); Eosinophils % 1.3 % (0.1-12.0); Hemoglobin 14.8 g/dL (14.1-18.0); Lymphocytes # 0.9 K/mm3 (0.7-4.5); Lymphocytes % 24.2 % (10-50); Mean Corpuscular HGB Conc 31.5 g/dL (31.8-35.4); Mean Corpuscular Hemoglobin 34.2 pg (27.0-31.2); Mean Corpuscular Volume 108.6 fl (80-94); Mean Platelet Volume 7.9 fl (7.4-10.4); Monocytes # 0.6 K/mm3 (0.1-1.0); Monocytes % 14.5 % (1.7-9.3); Neutrophils # 2.3 K/mm3 (1.8-7.8); Neutrophils % 59.8 % (37.0-80.0); Platelet Count 304 K/mm3 (142-424); Red Blood Count 4.33 M/mm3 (4.60-6.20); Red Cell Distribution Width 13.4 % (11.5-17.5); White Blood Count 3.8 K/mm3 (4.8-10.8)
[2023-02-21 11:04] LABS: Alanine Aminotransferase 112 U/L (12-78); Albumin Level 4.8 g/dl (3.5-5.0); Albumin/Globulin Ratio 1.4 (1.1-1.8); Alkaline Phosphatase 68 U/L (38-126); Anion Gap 17.3 mEq/L (5-15); Aspartate Amino Transferase 179 U/L (17-59); Bilirubin,Total 0.9 mg/dl (0.2-1.3); Blood Urea Nitrogen 4 mg/dl (9-20); Calcium 9.2 mg/dl (8.4-10.2); Carbon Dioxide 26 mmol/L (22.0-30.0); Chloride 102 mmol/L (98-107); Estimated Glomerular Filt Rate 119 ml/min (>60); GFR (African American) 144 ML/MIN (>60); Globulin 3.4 g/dL (1.3-3.2); Glucose 103 mg/dl (74-100); Potassium 4.3 mmoL/L (3.5-5.1); Sodium 141 mmol/L (136-145); Total Protein,Serum 8.2 g/dl (6.3-8.2)
== END ==
PROVIDERS: PCP Nurse Practitioner Family; Visit Provider Nurse Practitioner Family
DX: F10.10 Alcohol abuse, uncomplicated (principal); K70.0 Alcoholic fatty liver; R94.5 Abnormal results of liver function studies
CPT/HCPCS: 36415; 80053; 85025

== ENCOUNTER 2023-09-27 11:00 | Outpatient (CLI) | payer MEDICARE, SELFPAY ==
[2023-09-27 12:19] LABS: Alanine Aminotransferase 46 U/L (12-78); Albumin Level 4.8 g/dl (3.5-5.0); Alkaline Phosphatase 72 U/L (38-126); Aspartate Amino Transferase 121 U/L (17-59); Total Protein,Serum 7.6 g/dl (6.3-8.2)
[2023-09-29 14:31] LABS: Fibrosis Stage F1-F2; Steatosis Grade S1
[2023-09-29 14:32] LABS: NASH Grade N3
[2023-09-29 14:41] LABS: Interpretations: SEE COMMENTS
[2023-09-29 15:05] LABS: Fibrosis Score 0.46 High; NASH Score 0.90 High; Steatosis Score 0.43 High
[2023-09-29 15:10] LABS: Alpha 2-Macroglobulins, Qn 158 mg/dL
[2023-09-29 15:14] LABS: Fibrosis Scoring: SEE COMMENTS; Steatosis Grading: SEE COMMENTS
[2023-09-29 15:15] LABS: NASH Scoring: SEE COMMENTS
[2023-09-29 15:20] LABS: Limitations: SEE COMMENTS
[2023-09-29 15:30] LABS: ALT (SGPT) P5P 46 IU/L; AST (SGOT) P5P 115 IU/L High; Apolipoprotein A-1 236 mg/dL High; Bilirubin, Total 1.6 mg/dL High; GGT 758 IU/L Alert; Haptoglobin 78 mg/dL
[2023-09-29 15:31] LABS: Cholesterol, Total 270 mg/dL High; Glucose 85 ml/dL; Triglycerides 69 ml/dL
== END 2023-09-27 23:59 ==
PROVIDERS: PCP Nurse Practitioner Family; Visit Provider Nurse Practitioner Family
DX: R94.5 Abnormal results of liver function studies (principal); F10.10 Alcohol abuse, uncomplicated; K70.0 Alcoholic fatty liver; R63.4 Abnormal weight loss
CPT/HCPCS: 36415; 80076

== ENCOUNTER 2023-12-07 14:30 | Emergency (ER) | payer MEDICARE, MEDICAID, SELFPAY ==
--- NOTE | 2023-12-07 14:40 | ED_ITS ---
<Statement entered by Tracey Putnam DO - 12/07/23 15:41> I was consulted by the MIGUEL ANGEL, and we discussed the complexity of the problems being addressed. I approved the treatment and management plan for this patient's care in the emergency department, thus performing a substantive portion of the medical decision making. Patient reports that he came here to get his ears flushed out because they are clogged up. He states that he does not want anything else, and he should have just followed up with his primary care provider for this. After being asked about alcohol abuse by MIGUEL ANGEL, he became agitated and stating that he is not here for this and wants to just leave. He does not want to get his ears cleaned out anymore at this time, despite me offering. He is alert and oriented GCS of 15, and I feel that patient directed discharge is fine given patient has capacity. Patient left in stable condition. Tracey Putnam DO Discharge Plan Disposition Patient Disposition: Home, Self-Care Condition: Serious Prescriptions Prescriptions: No Action trazodone 100 mg tablet 100 mg PO DAILY olanzapine 5 mg tablet 5 mg PO DAILY ketorolac 10 MG tablet 10 mg PO Q6H 5 Days Qty: 20 0RF doxycycline hyclate 100 MG capsule 100 mg PO Q12 10 Days Qty: 20 3RF minocycline 100 MG tablet 100 mg PO BID 14 Days Qty: 28 3RF minocycline 100 MG tablet 100 mg PO BID 14 Days Qty: 28 1RF mupirocin 22 GM ointment 1 applicatio TP TID 7 Days Qty: 1 0RF hydrocodone-acetaminophen 1 TAB tablet 1 tab PO Q6HP PRN (Reason: Pain) Qty: 10 0RF ibuprofen 600 MG tablet 600 mg PO Q6HP PRN (Reason: Mild Pain) Qty: 30 0RF methylprednisolone 4 MG tablet 4 mg PO DIRECTED Qty: 21 0RF Rx Instructions: Take as directed on package instructions Referrals Follow up/Referrals: Camila Pelaez APRN [Primary Care Provider] - See instructions Activity Restrictions/Add. Instructions Additional Instructions/Restrictions: Please follow-up with your PCP as you indicated that you would. Return to ER for any worsening signs or symptoms as needed Clinical Impressions Clinical Impression: Alcohol abuse with withdrawal, uncomplicated Discharge ED Provider: Tracey Putnam General Adult HPI General Chief complaint: Alcohol Stated complaint: hallucinating Time Seen by Provider: 12/07/23 14:37 History of Present Illness HPI narrative: Patient brought in by his mother for what his mother describes as alcohol withdrawal and alcohol abuse. Patient reportedly has been self tapering his alcohol consumption down to a 24 ounce beer a day. He previously according to his mother had an alcohol consumption of a 12 pack of alcohol withdrawal daily. In interview of the patient he is oriented to person place and circumstance date and time and denies that he is in alcohol withdrawal. He currently denies chest pain fever chills hemoptysis hematochezia melena nausea vomiting diarrhea anxiety hallucinations visual or auditory time. Patient states his only complaint is not being able to hear out of his left ear. Related Data Home Medications Medication Instructions Recorded Confirmed olanzapine 5 mg tablet 5 mg PO DAILY 12/17/19 12/31/19 trazodone 100 mg tablet 100 mg PO DAILY 12/17/19 12/31/19 Previous Rx's Medication Instructions Recorded ketorolac 10 mg tablet 10 mg PO Q6H 5 days #20 tabs 06/15/18 doxycycline hyclate 100 mg capsule 100 mg PO Q12 10 days #20 caps 04/23/19 minocycline 100 mg tablet 100 mg PO BID 14 days #28 tabs 09/13/19 mupirocin 2 % topical ointment 1 applicatio TP TID 7 days #1 tube 09/13/19 hydrocodone 5 mg-acetaminophen 325 1 tab PO Q6HP PRN Pain #10 tabs 12/13/19 mg tablet minocycline 100 mg tablet 100 mg PO BID 14 days #28 tabs 04/11/20 ibuprofen 600 mg tablet 600 mg PO Q6HP PRN Mild Pain #30 02/22/21 tabs methylprednisolone 4 mg tablet 4 mg PO DIRECTED #21 tabs 04/04/21 Allergies Allergy/AdvReac Type Severity Reaction Status Date / Time amoxicillin Allergy Verified 12/31/19 14:22 Penicillins Allergy Verified 12/31/19 14:22 [facility] Disclaimer: The information contained in this section may have been updated after the patient was seen, as this information can be updated by other users. Social History Smoking Status: Never smoker second hand exposure: No alcohol intake: never substance use type: marijuana current occupational status: other Travel in the last 8 weeks: None household members: family housing: house ROS Obtained: Yes Systems reviewed as appropriate & no additional complaints except as documented Physical Exam General General appearance: alert and anxious Head Head exam: atraumatic and normal inspection Eye Eye exam: Present normal appearance, PERRL, EOMI and conjunctival injection ENT ENT exam: Present normal exam, normal oropharynx and mucous membranes moist; Absent TM's normal bilaterally (Bilateral external auditory canals are caked with wax) Neck Neck exam: Present normal inspection, full ROM and trachea midline; Absent tend erness, meningismus or lymphadenopathy Chest Chest inspection: Present normal inspection and symmetric chest wall rise Respiratory Respiratory exam: Present normal lung sounds bilaterally; Absent respiratory distress or accessory muscle use Cardiovascular Cardiovascular exam: Present normal rhythm, tachycardia, normal heart sounds, +S1 and +S2 Abdominal Exam Abdominal exam: Present soft and normal bowel sounds; Absent tenderness, guarding, rebound or rigidity Extremities Exam Extremities exam: Present normal inspection and full ROM Back Exam Back exam: Present normal inspection and full ROM; Absent tenderness Neurological Exam Neurological exam: Present alert, oriented X3, CN II-XII intact and other (Patient has obvious visible tremors); Absent normal gait (Patient has an unsteady gait but is able to maintain normal locomotion without assistance) or motor sensory deficit Psychiatric Psychiatric exam: Absent agitated or anxious Skin Skin exam: Present warm, dry and normal color Medical Decision Making Medical Records Medical records reviewed: Yes I reviewed the patient's medical records. Suraj Ruth Pt receiving controlled substance: No Vital Signs: 12/07/23 14:47 12/07/23 15:32 Temperature 98.6 F 0 F L Temperature Source Oral Pulse Rate 0 L Pulse Rate [Left Radial] 105 H Respiratory Rate 20 0 L Blood Pressure 0/0 L Blood Pressure [Right Arm] 172/114 H Blood Pressure Mean [Right Arm] 133 02 Sat by Pulse Oximetry 99 Oxygen Delivery Method Room Air Lab Data Lab results reviewed: Yes I reviewed the patient's lab results. Medical Decision Narrative: In summary patient is a 48-year-old male who presents to the emergency depa rtment for evaluation of alcohol abuse in the care of his mother. Patient is tachycardic with a normal blood pressure upon arrival, afebrile. Physical exam is remarkable for significant tremulousness and anxiety along with some agitation about being here. I had an interactive discussion with the patient regarding his needs and he has refused all care including any outpatient treatment of alcohol abuse any cerumen disimpaction. I have offered for a Librium taper and patient has declined. Differential diagnosis includes alcohol abuse, uncomplicated withdrawal, complicated withdrawal, cerumen impaction. Initial workup was declined by the patient. Patient does have the capacity for decision-making and is oriented to person place and circumstance and adamantly denies he has a drinking problem and has declined all care despite explicit explanations of the risks including seizure even . Thus patient is discharged back home in the care of his mother per his wishes. Critical Care Critical Care Time Critical Care Time: No
[2023-12-07 14:47] VITALS: BP 172/114; PULSE 105; RESP 20; TEMP 37; O2SAT 99; BMI 19.8
--- NOTE | 2023-12-07 14:55 | PC.NURSE ---
pt states he no longer wants to stay and be seen after speking to the provider. pt educated on the risks associated with self detox at home. pt verbalizes understanding. instructed pt to come back with any new or worsening symptoms
[2023-12-07 15:32] VITALS: BP 0/0; PULSE 0; RESP 0; TEMP -17.7; TEMP 0; O2SAT 0
== END 2023-12-07 15:00 | disposition home or self-care (01) ==
PROVIDERS: Emergency Provider Emergency Medicine; PCP Nurse Practitioner Family
DX: F10.130 Alcohol abuse with withdrawal, uncomplicated (principal); H61.23 Impacted cerumen, bilateral
CPT/HCPCS: 99282

== ENCOUNTER 2024-03-19 12:03 | Outpatient (CLI) | payer MEDICARE, MEDICAID, SELFPAY ==
[2024-03-19 12:56] LABS: Alanine Aminotransferase 108 U/L (12-78); Albumin Level 4.4 g/dl (3.5-5.0); Alkaline Phosphatase 65 U/L (38-126); Aspartate Amino Transferase 205 U/L (17-59); Bilirubin,Direct 0.3 mg/dl (0.0-0.4); Bilirubin,Indirect 0.8 mg/dL (0.0-0.9); Bilirubin,Total 1.1 mg/dl (0.2-1.3); Bilirubin,Unconjugated 0.7 mg/dL (0.0-1.1); Total Protein,Serum 7.9 g/dl (6.3-8.2)
[2024-03-22 14:04] LABS: Miscellaneous Test SCANNED IMAGE
== END 2024-03-19 23:59 | disposition home or self-care (01) ==
LOC: LAB 12:06
PROVIDERS: PCP Nurse Practitioner; Visit Provider Nurse Practitioner Family
DX: R94.5 Abnormal results of liver function studies (principal); F10.10 Alcohol abuse, uncomplicated; K70.0 Alcoholic fatty liver; R63.4 Abnormal weight loss; Z68.1 Body mass index [BMI] 19.9 or less, adult
CPT/HCPCS: 36415; 80076

== ENCOUNTER 2024-06-13 14:38 | Inpatient (IN) | payer MEDICARE, MEDICAID, SELFPAY ==
[2024-06-13] VITALS (9 sets, daily range): BP systolic 124–162; BP diastolic 81–102; PULSE 90–103; RESP 13–20; TEMP 36.7–36.8; O2SAT 98–99; BMI 19.2
--- NOTE | 2024-06-13 14:44 | ED_ITS ---
<Statement entered by Daniella Foreman MD - 06/14/24 23:14> I was consulted by the MIGUEL ANGEL, and we discussed the complexity of the problems being addressed. I approved the treatment and management plan for this patient's care in the emergency department, thus performing a substantive portion of the medical decision making. Daniella Foreman MD, JONATHAN, FACEP Discharge Plan Disposition Patient Disposition: Admitted Condition: Good Clinical Impressions Clinical Impression: Uncomplicated alcohol withdrawal Discharge ED Provider: Oscar Tripp A General Adult HPI General Chief complaint: Alcohol Stated complaint: delusional, off balance Time Seen by Provider: 06/13/24 14:44 History of Present Illness HPI narrative: Presents for evaluation of ataxia and reported altered mental status. According to the friend that arrived with the patient he was on a conversation with his mom earlier today where he was saying nonsensical things. We do not actually have the report from the mother. Patient is a known consumer of alcohol and tells us that he has been trying to cut back. He has had 1 beer today 4 beers yesterday. There is also report from his mother that me he may have abruptly discontinued his Zyprexa for his schizophrenia. Patient himself states that he is having trouble walking but currently is oriented to person place circumstance and is awake alert and oriented. He does have visible tremors. He denies chest pain fever chills hemoptysis hematochezia melena nausea vomiting diarrhea. Related Data Home Medications ?Medication ?Instructions ?Recorded ?Confirmed olanzapine 5 mg tablet 5 mg PO DAILY 12/17/19 06/13/24 losartan 100 mg tablet 100 mg PO DAILY 05/03/24 06/13/24 Allergies Allergy/AdvReac Type Severity Reaction Status Date / Time amoxicillin Allergy Hives Verified 06/13/24 15:10 Penicillins Allergy Hives Verified 06/13/24 15:10 [facility] Disclaimer: The information contained in this section may have been updated after the patient was seen, as this information can be updated by other users. Medical History Schizophrenia Alcohol abuse HTN (hypertension) Appendicitis Social History (Updated 06/13/24 @ 18:44 by Vicki Duron RN) Smoking Status: Never smoker second hand exposure: No alcohol intake: current alcohol intake frequency: a few times a week substance use type: former substance user and marijuana current occupational status: other Travel in the last 8 weeks: None household members: family housing: house Other Medical History Have you received the Flu Vaccine for this season: Yes Have you received the Pneumonia Vaccine: Yes ROS Obtained: Yes Systems reviewed as appropriate & no additional complaints except as documented Physical Exam General General appearance: alert and in no apparent distress Respiratory Respiratory exam: Present normal lung sounds bilaterally Cardiovascular Cardiovascular exam: Present regular rate Neurological Exam Neurological exam: Present alert and oriented X3 Skin Skin exam: Present dry Medical Decision Making Medical Records Medical records reviewed: Yes I reviewed the patient's medical records. Screening: Per USPSTF and CDC recommendations, given the prevalence of disease in our region, it is our hospital?s policy to screen for HIV and viral Hepatitis for all patients aged 18 and over and those with ongoing risk factors. Suraj Inquiry Pt receiving controlled substance: No Vital Signs: 06/13/24 14:57 06/13/24 15:03 06/13/24 15:30 Temperature 98.2 F Temperature Source Oral Pulse Rate [Left] 90 Respiratory Rate 16 13 18 Blood Pressure 153/99 H 141/98 H Blood Pressure [Right Arm] 162/102 H Blood Pressure Mean [Right Arm] 122 Blood Pressure Source [Right Arm] Automatic Cuff Blood Pressure Position [Right Arm] Sitting 02 Sat by Pulse Oximetry 99 Oxygen Delivery Method Room Air 06/13/24 16:30 06/13/24 17:31 Temperature Temperature Source Pulse Rate [Left] Respiratory Rate 16 18 Blood Pressure 129/95 H 124/88 Blood Pressure [Right Arm] Blood Pressure Mean [Right Arm] Blood Pressure Source [Right Arm] Blood Pressure Position [Right Arm] 02 Sat by Pulse Oximetry Oxygen Delivery Method Lab Data Lab results reviewed: Yes I reviewed the patient's lab results. Lab Results 06/13/24 14:50: WBC 8.7, RBC 3.67 L, Hgb 13.8 L, Hct 40.0 L, MCV 108.9 H, MCH 37.6 H, MCHC 34.6, RDW 13.4, Plt Count 208, MPV 8.5, Neut % (Auto) 80.4 H, Lymph % (Auto) 6.4 L, [place] % (Auto) 11.5 H, Eos % (Auto) 0.8, Baso % (Auto) 0.9, Neut # (Auto) 7.0, Lymph # (Auto) 0.6 L, [place] # (Auto) 1.0, Eos # (Auto) 0.1, Baso # (Auto) 0.1, PT 10.3, INR 0.91, APTT 27.8, Sodium 138, Potassium 3.8, Chloride 103, Carbon Dioxide 19 L, Anion Gap 19.8 H, BUN 12, Creatinine 0.60 L, Estimated Creat Clear 133, Estimated GFR 142, Est GFR ( Amer) 172, Glucose 91, Calcium 9.7, Phosphorus 4.5, Magnesium 1.7, Total Bilirubin 1.7 H, AST 108 H, ALT 60, Alkaline Phosphatase 68, Ammonia < 9 L, Total Protein 8.1, Albumin 5.0, Globulin 3.1, Albumin/Globulin Ratio 1.6, Lipase 239, Vitamin B12 960 H, Folate > 20.00, Plasma/Serum Alcohol < 10, HIV 1&2 Antibody Rapid Nonreactive 06/13/24 14:50 06/13/24 14:50 Orders (Tests/Meds): ED MEDICATIONS Generic Name Dose Route Start Last Admin Trade Name Freq PRN Reason Stop Dose Admin Acetaminophen 650 mg 06/13/24 18:27 Acetaminophen 325mg Tab PO 07/13/24 18:26 Q4HP PRN Fever or Mild Pain (1-3) Enoxaparin Sodium 40 mg 06/14/24 09:00 Enoxaparin 40mg/0.4ml Syringe SUBCUT 07/14/24 08:59 DAILY BEL Haloperidol Lactate 5 mg 06/13/24 14:59 Haloperidol Lactate 5 Mg/Ml Vial IV 07/13/24 14:58 Q1HP PRN Agitation Multivitamins 10 ml/ Thiamine 1,015 mls @ 150 mls/hr 06/13/24 14:45 06/13/24 15:54 HCl 100 mg/ Magnesium Sulfate IV 06/13/24 21:30 150 mls/hr 2 gm/ Lactated Ringer's .Q6H46M BEL Administration Dextrose/Sodium Chloride 1,000 mls @ 100 mls/hr 06/13/24 18:30 Dextrose 5%-0.45% Nacl Iv Soln IV 07/13/24 18:29 .Q10H BEL Lorazepam 2 mg 06/13/24 14:59 Lorazepam 2mg/Ml Vial IV 07/13/24 14:58 Q1HP PRN CIWA >16 Lorazepam 1 mg 06/13/24 14:59 Lorazepam 2mg/Ml Vial IV 07/13/24 14:58 Q1HP PRN CIWA Score 8-15 Ondansetron HCl 4 mg 06/13/24 18:27 Ondansetron 4mg/2ml Vial IV 07/13/24 18:26 Q8HP PRN Nausea Sodium Chloride 10 ml 06/13/24 14:59 Sodium Chloride 0.9% 10ml Vial IV 07/13/24 14:58 NEEDED PRN to Dilute Lorazepam inj Sodium Chloride 10 ml 06/13/24 18:29 Sodium Chloride 0.9% 10ml Vial IV 07/13/24 18:28 NEEDED PRN to Dilute Lorazepam inj Discontinued Medications Generic Name Dose Route Start Last Admin Trade Name Freq PRN Reason Stop Dose Admin Diazepam 10 mg 06/13/24 14:45 Diazepam 10mg/2ml Syringe IV 07/13/24 14:44 Q1HP PRN CIWA >16 Folic Acid 1 mg 06/13/24 14:45 06/13/24 15:54 Folic Acid 1mg Tablet PO 06/13/24 14:46 1 mg ONCE ONE Administration Iopamidol 80 ml 06/13/24 17:02 06/13/24 17:03 Iopamidol-370 (76%);100ml Bottle IV 06/13/24 17:03 80 ml ONCE ONE Administration Lorazepam 1 mg 06/13/24 14:59 06/13/24 15:58 Lorazepam 1mg Tablet PO 07/13/24 14:58 1 mg Q6HP PRN Administration CIWA 2-7 Lorazepam 2 mg 06/13/24 18:29 Lorazepam 2mg/Ml Vial IV 07/13/24 18:28 Q1HP PRN CIWA >16 Sodium Chloride 10 ml 06/13/24 17:02 06/13/24 17:03 Sodium Chloride 0.9% 10ml Syr (Rad Only) IV 06/13/24 17:03 10 ml ONCE ONE Administration Sodium Chloride 50 ml 06/13/24 17:02 06/13/24 17:03 0.9 % Sodium Chloride 50 Ml Vial IV 06/13/24 17:03 50 ml ONCE ONE Administration ORDERS Category Date Time Status CT angio head Stat Cat Scan 06/13/24 14:[address] angio neck Stat Cat Scan 06/13/24 14:[address] head/brain wo con Stat Cat Scan 06/13/24 14:52 Completed Consult Hose Sprayer [CONS] Routine Cons 06/13/24 15:10 Active Activated Partial Thrombo Time Routine Lab 06/13/24 14:50 Completed Ammonia Stat Lab 06/13/24 14:50 Completed Complete Blood Count Auto Diff AMLAB Lab 06/14/24 06:00 Ordered Complete Blood Count Auto Diff AMLAB Lab 06/15/24 06:00 Ordered Complete Blood Count Auto Diff AMLAB Lab 06/16/24 06:00 Ordered Complete Blood Count Auto Diff AMLAB Lab 06/17/24 06:00 Ordered Complete Blood Count Auto Diff AMLAB Lab 06/18/24 06:00 Ordered Complete Blood Count Auto Diff Routine Lab 06/13/24 14:50 Completed Comprehensive Metabolic Panel AMLAB Lab 06/14/24 06:00 Ordered Comprehensive Metabolic Panel AMLAB Lab 06/15/24 06:00 Ordered Comprehensive Metabolic Panel AMLAB Lab 06/16/24 06:00 Ordered Comprehensive Metabolic Panel AMLAB Lab 06/17/24 06:00 Ordered Comprehensive Metabolic Panel AMLAB Lab 06/18/24 06:00 Ordered Comprehensive Metabolic Panel Routine Lab 06/13/24 14:50 Completed Drug Screen,Urine Routine Lab 06/13/24 14:46 Ordered Ethyl Alcohol Stat Lab 06/13/24 14:50 Completed Folate Stat Lab 06/13/24 14:50 Completed HIV (1&2) Antibody Rapid Stat Lab 06/13/24 14:50 Completed Hep C Ab with Reflex to RNA Stat Lab 06/13/24 14:50 Received Lipase Routine Lab 06/13/24 14:50 Completed Lipid Panel AMLAB Lab 06/14/24 06:00 Ordered Lipid Panel AMLAB Lab 06/15/24 06:00 Ordered Lipid Panel AMLAB Lab 06/16/24 06:00 Ordered Lipid Panel AMLAB Lab 06/17/24 06:00 Ordered Lipid Panel AMLAB Lab 06/18/24 06:00 Ordered Magnesium AMLAB Lab 06/14/24 06:00 Ordered Magnesium AMLAB Lab 06/15/24 06:00 Ordered Magnesium AMLAB Lab 06/16/24 06:00 Ordered Magnesium AMLAB Lab 06/17/24 06:00 Ordered Magnesium AMLAB Lab 12/09/24 06:00 Ordered Magnesium Routine Lab 06/13/24 14:50 Completed Phosphorous Routine Lab 06/13/24 14:50 Completed Prothrombin Time INR Routine Lab 06/13/24 14:50 Completed Vitamin B12 Stat Lab 06/13/24 14:50 Completed Medical Decision Narrative: In summary patient is a 49-year-old male who presents to the emergency department for evaluation of tremors and ataxia. Patient is hemodynamically stable on arrival upon arrival, afebrile. Physical exam is remarkable for body wide tremors that are moderate in nature not gross or fine. Patient was unable to ambulate without assistance but was able to stand with assistance. He is awake alert and oriented to person place and circumstance [place] Coma Score is 15 currently. CIWA score is currently 4 primarily due to the tremors. Patient denies audiovisual hallucinations suicidal ideations and states I feel fine except for not being able to walk . The inability to walk apparently occurred today. He states that he has been mostly taking his Zyprexa.. Differential diagnosis includes Zyprexa discontinuation syndrome versus alcohol withdrawal versus stroke versus metabolic derangement etc. Initial workup will be conducted with hematologic labs CT scan of the head CTA of the head and neck twelve-lead EKG plain film chest x-ray. Initial interventions include crystalloid bolus rally pack. Initial workup reviewed by me shows his hematologic labs show an H&H at 13.8 and 40.0 respectively with an absolute neutrophil count of 7.0 with CO2 of 19 and gap of 19.8 creatinine 0.6 bilirubin 1.7 AST of 108 ammonia level less than 9 and serum alcohol level of less than 10 with the remainder of his hematologic labs being nonactionable. My informal interpretation of his imaging shows no acute processes or acute stroke.. Upon repeat evaluation patient still has weakness and inability to stand however his tremor is now gone after benzodiazepine.. Given this I had interactive discussion with hospital medicine regarding patient management and he will be admitted for further evaluation and care Critical Care Critical Care Time Critical Care Time: No
--- NOTE | 2024-06-13 14:52 | CT_ITS ---
PROCEDURE INFORMATION: Exam: CTA Neck With Contrast Exam date and time: 06/13/2024 5:01 PM Age: 49 years old Clinical indication: Other: Ataxia, encephalopathy TECHNIQUE: Imaging protocol: Computed tomographic angiography of the neck with contrast. Exam focused on the cervical segments of the vasculature. 3D rendering (Not supervised by radiologist): MIP and/or 3D reconstructed images were created by the technologist. Radiation optimization: All CT scans at this facility use at least one of these dose optimization techniques: automated exposure control; mA and/or kV adjustment per patient size (includes targeted exams where dose is matched to clinical indication); or iterative reconstruction. Contrast material: ISOVUE 370; Contrast volume: 80 ml; Contrast route: INTRAVENOUS (IV); COMPARISON: CT ANGIO HEAD 06/13/2024 5:01 PM FINDINGS: Limitations: Patient motion. Right common carotid artery: Mild calcification of the right common carotid bifurcation without stenosis. Right internal carotid artery: No stenosis of the extracranial segment. No dissection or occlusion. Right external carotid artery: No occlusion or stenosis of the origin. Left common carotid artery: Minimal calcification of the left common carotid bifurcation without stenosis. Left internal carotid artery: No stenosis of the extracranial segment. No dissection or occlusion. Left external carotid artery: No occlusion or stenosis of the origin. Right vertebral artery: No stenosis. No dissection or occlusion. Left vertebral artery: No stenosis. No dissection or occlusion. Soft tissues: Normal. No significant soft tissue swelling. Bones/joints: Degenerative change involving the spine. IMPRESSION: No hemodynamically significant stenosis. REFERENCES: NASCET CRITERIA. The degree of stenosis in the cervical segment of the internal carotid artery is based on NASCET criteria. Normal is no stenosis. Mild is less than 50% stenosis. Moderate is 50-69% stenosis. Severe is 70% to 99% stenosis. Total occlusion is no detectable patent lumen.
--- NOTE | 2024-06-13 14:52 | CT_ITS ---
PROCEDURE INFORMATION: Exam: CT Head Without Contrast Exam date and time: 06/13/2024 5:01 PM Age: 49 years old Clinical indication: Other: Ataxia, encephalopathy TECHNIQUE: Imaging protocol: Computed tomography of the head without contrast. Radiation optimization: All CT scans at this facility use at least one of these dose optimization techniques: automated exposure control; mA and/or kV adjustment per patient size (includes targeted exams where dose is matched to clinical indication); or iterative reconstruction. COMPARISON: CT ANGIO HEAD 06/13/2024 5:01 PM FINDINGS: Brain: Mild volume loss. Decreased attenuation of the supratentorial white matter is likely secondary to chronic microvascular ischemia. No acute intracranial hemorrhage. No midline shift or significant intracranial mass effect. Chronic lacunar infarct at the left basal ganglia. Cerebral ventricles: No hydrocephalus. Paranasal sinuses: Moderate to severe paranasal sinus disease. Mastoid air cells: Visualized mastoid air cells are well aerated. Bones: Chronic nasal bone fractures. No acute calvarial fracture. Soft tissues: Unremarkable. IMPRESSION: No acute intracranial abnormality.
--- NOTE | 2024-06-13 14:52 | CT_ITS ---
PROCEDURE INFORMATION: Exam: CTA Head With Contrast, Arteriography Exam date and time: 06/13/2024 5:01 PM Age: 49 years old Clinical indication: Other: Ataxia, encephalopathy TECHNIQUE: Imaging protocol: Computed tomographic angiography of the head with contrast. Exam focused on the arteries. 3D rendering (Not supervised by radiologist): MIP and/or 3D reconstructed images were created by the technologist. Radiation optimization: All CT scans at this facility use at least one of these dose optimization techniques: automated exposure control; mA and/or kV adjustment per patient size (includes targeted exams where dose is matched to clinical indication); or iterative reconstruction. Contrast material: ISOVUE 370; Contrast volume: 80 ml; Contrast route: INTRAVENOUS (IV); COMPARISON: CT HEAD/BRAIN WO CON 06/13/2024 5:01 PM FINDINGS: ANTERIOR CIRCULATION: Right internal carotid artery: Intracranial segment is patent with no significant stenosis. No aneurysm. Right middle cerebral artery: No occlusion or significant stenosis. No aneurysm. Right anterior cerebral artery: No occlusion or significant stenosis. No aneurysm. Left internal carotid artery: Minimal calcification involving the left carotid siphon without stenosis. Left middle cerebral artery: No occlusion or significant stenosis. No aneurysm. Left anterior cerebral artery: No occlusion or significant stenosis. No aneurysm. POSTERIOR CIRCULATION: Right vertebral artery: No occlusion or significant stenosis. No aneurysm. Left vertebral artery: No occlusion or significant stenosis. No aneurysm. Basilar artery: No occlusion or significant stenosis. No aneurysm. Right posterior cerebral artery: origin of the right posterior cerebral artery. Left posterior cerebral artery: No occlusion or significant stenosis. No aneurysm. IMPRESSION: No hemodynamically significant stenosis or large vessel occlusion.
--- NOTE | 2024-06-13 15:01 | ECG_ITS ---
APPROVED REPORT Exam: Resting ECG HR:85 bpm ECG Measurements Heart Rate 85 AXES DC 177 P 66 QRSd 103 QRS 72 QT 375 T 46 QTc 417 Conclusion SINUS RHYTHM POSSIBLE INFERIOR MYOCARDIAL INFARCTION , PROBABLY OLD [30 ms Q WAVE IN II/aVF] Electronically signed by : HINA FRY, 06/13/2024 23:50:14
[2024-06-13 15:09] LABS: Basophils # 0.1 K/mm3 (0-0.2); Basophils % 0.9 % (0.1-2.0); Eosinophils # 0.1 K/mm3 (0.0-0.4); Eosinophils % 0.8 % (0.1-12.0); Hemoglobin 13.8 g/dL (14.1-18.0); Lymphocytes # 0.6 K/mm3 (0.7-4.5); Lymphocytes % 6.4 % (10-50); Mean Corpuscular HGB Conc 34.6 g/dL (31.8-35.4); Mean Corpuscular Hemoglobin 37.6 pg (27.0-31.2); Mean Corpuscular Volume 108.9 fl (80-94); Mean Platelet Volume 8.5 fl (7.4-10.4); Monocytes % 11.5 % (1.7-9.3); Neutrophils % 80.4 % (37.0-80.0); Platelet Count 208 K/mm3 (142-424); Red Blood Count 3.67 M/mm3 (4.60-6.20); Red Cell Distribution Width 13.4 % (11.5-17.5); White Blood Count 8.7 K/mm3 (4.8-10.8)
--- NOTE | 2024-06-13 15:13 | PC.NURSE ---
I notified Safia, peer search consultant, of the need for a consult.
[2024-06-13 15:14] LABS: Ammonia < 9 umol/L (9-30)
[2024-06-13 15:16] LABS: Activated Partial Thrombo Time 27.8 seconds (22.8-30.6); INR 0.91 (0.9-1.1); Prothrombin Time 10.3 seconds (10.1-12.5)
[2024-06-13 15:19] LABS: Lipase 239 U/L (23-300)
[2024-06-13 15:35] LABS: Ethyl Alcohol < 10 mg/dl (0-10)
[2024-06-13] MEDS: FOLIC ACID 1MG TABLET 1 MG PO (15:54)
[2024-06-13] MEDS: MVI, ADULT NO.1 WITH VIT K 10 ML, THIAMINE HCL 100 MG, MAGNESIUM SULFATE 2 GM in LACTAT... 150 ML IV (15:54)
[2024-06-13] MEDS: LORazepam 1MG TABLET 1 MG PO (15:58)
[2024-06-13 16:32] LABS: Vitamin B12 960 pg/mL (239-931)
[2024-06-13 16:44] LABS: Chloride 103 mmol/L (98-107); Potassium 3.8 mmoL/L (3.5-5.1); Sodium 138 mmol/L (136-145)
[2024-06-13 16:47] LABS: Alanine Aminotransferase 60 U/L (12-78); Albumin/Globulin Ratio 1.6 (1.1-1.8); Alkaline Phosphatase 68 U/L (38-126); Anion Gap 19.8 mEq/L (5-15); Aspartate Amino Transferase 108 U/L (17-59); Bilirubin,Total 1.7 mg/dl (0.2-1.3); Blood Urea Nitrogen 12 mg/dl (9-20); Carbon Dioxide 19 mmol/L (22.0-30.0); Creatinine Clearance Estimated 133 mL/min (50-200); Estimated Glomerular Filt Rate 142 ml/min (>60); GFR (African American) 172 ML/MIN (>60); Globulin 3.1 g/dL (1.3-3.2); Phosphorous 4.5 mg/dl (2.5-4.5); Total Protein,Serum 8.1 g/dl (6.3-8.2)
[2024-06-13 16:48] LABS: Calcium 9.7 mg/dl (8.4-10.2); Glucose 91 mg/dl (74-100); Magnesium 1.7 mg/dl (1.6-2.3)
[2024-06-13] MEDS: IOPAMIDOL-370 (76%);100ML BOTTLE 80 ML IV (17:03)
[2024-06-13] MEDS: 0.9 % SODIUM CHLORIDE 50 ML VIAL IV (17:03)
[2024-06-13] MEDS: SODIUM CHLORIDE 0.9% 10ML SYR (RAD ONLY) 10 ML IV (17:03)
--- NOTE | 2024-06-13 17:44 | PC.NURSE ---
FIRST AID TRAINER NOTIFIED OF ADMISSION
--- NOTE | 2024-06-13 18:14 | PC.NURSE ---
Report called to Kimmy Sanderson RN on Med Surg.
[2024-06-13 18:36] LABS: Folate > 20.00 ng/mL
--- NOTE | 2024-06-13 18:36 | PC.NURSE ---
arrived by stretcher from ED
--- NOTE | 2024-06-13 18:57 | PEERSUPPORT ---
Peer Support Note Patient Information Patient Information: DOS: 06/13/2024 ? Reason: ETOH Withdrawal/AUD ? Longest Length of Sobriety: 18 months by choice patient says he then got thirsty and started back drinking. ? Support System: Neighbor: Alla Mother ? Current Stressors: Not able to walk Alcohol withdrawal ? Motivation for Change: Patient says he has tried to stop drinking recently, and found himself not able to walk then was brought to the hospital. He says he does want to stop drinking for now but wants to get to a point where he can drink one to two beers per day. Patient has not tried any medication to assist in treatment. ? Potential Barriers: Lack of support No transportation- Pt let license . Desire to drink in moderation ? Harm Reduction: Pt admitted to [facility] for alcohol withdrawal. ? Ps discussed telling nurses how and what he was feeling with honesty. ? Recovery Plan: Patient to focus on physical health and wellness allowing nurses and doctors to care for him. Bridge peer support with follow to monitor during admission to discuss a plan for connection to outpatient or community recovery services.
--- NOTE | 2024-06-13 19:01 | EXP.HP ---
History of Present Illness *Admission Date: 06/13/24 *Reason for visit:: Alcohol withdrwal *History of present illness: Reilly Paniagua is a 49 year old male with a medical history significant for alcohol use disorder, hypertension who presents with worsening lower extremity gait and weakness. He states it began a few weeks ago and has progressively gotten worse. Now, he is not able to ambulate without assistance from his friends. He states he drink about 5-6 beers a day, and has been smoking for 30+ years. On interviewing, patient does exhibit intermittent confusion and forgetfulness. He also has right sided facial droop. No history of CVA or cardiac disease. Workup in the ED AGAP 19.8, AST/ALT 108/60, B12 960, folate > 20. Head/neck CT/CTA were unremarkable. He received Ativan for suspected alcohol withdrawal, patient was tremulous on exam. Case discussed with ED provider and decision was made to admit patient for alcohol withdrawal and progressive debility. [facility] Disclaimer: The information contained in this section may have been updated after the patient was seen, as this information can be updated by other users. Medical History (Updated 06/13/24 @ 21:52 by Jasiel Schroeder MD) Schizophrenia Alcohol abuse HTN (hypertension) Appendicitis Social History (Updated 06/13/24 @ 18:44 by Vicki Duron RN) Smoking Status: Never smoker second hand exposure: No alcohol intake: current alcohol intake frequency: a few times a week substance use type: former substance user and marijuana current occupational status: other Travel in the last 8 weeks: None household members: family housing: house Other Medical History Have you received the Flu Vaccine for this season: Yes Have you received the Pneumonia Vaccine: No Meds Home Medications and Allergies Home Medications ?Medication ?Instructions ?Recorded ?Confirmed ?Type olanzapine 5 mg tablet 5 mg PO DAILY 12/17/19 06/13/24 History losartan 100 mg tablet 100 mg PO DAILY 05/03/24 06/13/24 History New Prescriptions to Start Prescriptions: Allergies Allergy/AdvReac Type Severity Reaction Status Date / Time amoxicillin Allergy Hives Verified 06/13/24 15:10 Penicillins Allergy Hives Verified 06/13/24 15:10 Exam Data for Last 24 hours Vital signs and Labs for Last 24 Hours: Temp Pulse Resp BP Pulse Ox O2 Del Method 98.3 F 103 H 20 139/99 H 99 Room Air 06/13/24 18:36 06/13/24 18:36 06/13/24 18:36 06/13/24 18:36 06/13/24 18:36 06/13/24 18:57 Laboratory Results - last 24 hr 06/13/24 14:50: WBC 8.7, RBC 3.67 L, Hgb 13.8 L, Hct 40.0 L, MCV 108.9 H, MCH 37.6 H, MCHC 34.6, RDW 13.4, Plt Count 208, MPV 8.5, Neut % (Auto) 80.4 H, Lymph % (Auto) 6.4 L, [place] % (Auto) 11.5 H, Eos % (Auto) 0.8, Baso % (Auto) 0.9, Neut # (Auto) 7.0, Lymph # (Auto) 0.6 L, [place] # (Auto) 1.0, Eos # (Auto) 0.1, Baso # (Auto) 0.1, PT 10.3, INR 0.91, APTT 27.8, Sodium 138, Potassium 3.8, Chloride 103, Carbon Dioxide 19 L, Anion Gap 19.8 H, BUN 12, Creatinine 0.60 L, Estimated Creat Clear 133, Estimated GFR 142, Est GFR ( Amer) 172, Glucose 91, Calcium 9.7, Phosphorus 4.5, Magnesium 1.7, Total Bilirubin 1.7 H, AST 108 H, ALT 60, Alkaline Phosphatase 68, Ammonia < 9 L, Total Protein 8.1, Albumin 5.0, Globulin 3.1, Albumin/Globulin Ratio 1.6, Lipase 239, Vitamin B12 960 H, Folate > 20.00, Plasma/Serum Alcohol < 10 I & O for Last 24 hours: Intake & Output 06/10/24 06/11/24 06/12/24 06/13/24 23:59 23:59 23:59 23:59 Weight 64.41 kg Constitutional Constitutional: no acute distress *Routine HEENT Exam Head: Present normocephalic Eye: Present EOMI and PERRL ENT: Present mucous membranes moist *Routine Neck Exam Neck: Present supple; Absent lymphadenopathy *Routine Respiratory Exam Respiratory: Present CTA bilaterally *Routine Cardiovascular Exam Cardiovascular: Present RRR *Routine Abdominal Exam Abdominal: Present soft and normoactive bowel sounds; Absent tenderness *Routine Rectal Exam Rectal:: deferred *Routine Genitalia Exam Genitalia:: deferred *Routine Extremities Exam Extremities: Absent cyanosis, clubbing or edema Comments: LE motor strength 3/5. *Routine Skin Exam Skin: Present warm; Absent rash *Routine Neurological Exam Neurological: Present alert Comments: Right sided facial droop. Assessment and Plan *Assessment and plan (1) Lower extremity weakness: Status: Acute Category: Medical Code(s): R29.898 - Other symptoms and signs involving the musculoskeletal system (2) Alcoholic liver disease: Status: Acute Category: Medical Code(s): K70.9 - Alcoholic liver disease, unspecified (3) Alcohol use disorder: Status: Acute Category: Medical Code(s): F10.90 - Alcohol use, unspecified, uncomplicated (4) Alcohol withdrawal: Status: Acute Category: Medical Code(s): F10.939 - Alcohol use, unspecified with withdrawal, unspecified Plan Reilly Paniagua is a 49 year old male with a medical history significant for alcohol use disorder, hypertension who presents with worsening lower extremity gait and weakness. He states it began a few weeks ago and has progressively gotten worse. Now, he is not able to ambulate without assistance from his friends. He states he drink about 5-6 beers a day, and has been smoking for 30+ years. On interviewing, patient does exhibit intermittent confusion and forgetfulness. He also has right sided facial droop. No history of CVA or cardiac disease. Workup in the ED AGAP 19.8, AST/ALT 108/60, B12 960, folate > 20. Head/neck CT/CTA were unremarkable. He received Ativan for suspected alcohol withdrawal, patient was tremulous on exam. Case discussed with ED provider and decision was made to admit patient for alcohol withdrawal and progressive debility. #Suspected Wernicke's encephalopathy #Lower extremity ataxia/weakness - Confusion, severe ataxia in setting of chronic alcohol use suggests this. - Follow-up thiamine level, although does not always correlate. - IV thiamine 200mg Q8h for now pending thiamine level. - Follow-up brain MRI tomorrow. - PT/OT consulted, pending recommendations. #Alcohol use disorder #Alcohol withdrawal - CIWA protcol. Ativan as needed for score > 7. - Consider naltrexone on discharge. #Hypertension - Resume home losartan. FULL CODE Levonox 40mg
[2024-06-13 19:31] LABS: HIV (1&2) Antibody Rapid NONREACTIVE (NONREACTIVE)
[2024-06-13] MEDS: OLANZAPINE 5 MG 5 EACH PO (21:33)
[2024-06-13] MEDS: THIAMINE HCL IV (22:42)
[2024-06-13] MEDS: SODIUM CHLORIDE 0.9% IV (22:42)
[2024-06-14] VITALS (7 sets, daily range): BP systolic 123–151; BP diastolic 58–98; PULSE 60–88; RESP 18–20; TEMP 36.4–36.8; O2SAT 96–100; BMI 19.7
[2024-06-14] MEDS: 0.9 % SODIUM CHLORIDE 1000ML 1,000 ML 100 ML IV ×2 (00:24→15:15)
--- NOTE | 2024-06-14 01:23 | PC.NURSE ---
06/14/24 Patient was talking to a family member by the name of Dina. After her conversation with the patient she called nursing staff to tell them she was concerned that the patient was depressed. This RN was in another room without the phone. Dina left a phone number. I attempted to call back 3 times for more information but the call was not picked up. Will pass on infomation to Peer support tomorrow.
--- NOTE | 2024-06-14 01:30 | PC.NURSE ---
06/14/24 Patient was talking to a family member by the of Dina. After her conversation with the patient, Dina called nursing staff to tell them she feels the patient is depressed. She is concerned about his safety. This RN was in another room and did not my phone with me. Dina left a call back number. I attempted to call back 3 times and call was not answered. I will pass on information to PEER support today.
--- NOTE | 2024-06-14 06:00 | MR_ITS ---
FINAL REPORT CLINICAL HISTORY: Eval for Wernicke s encephalopathy weakness FINDINGS: Multiplanar MR imaging of the brain was performed without contrast. There is moderate diffuse atrophy, greater than expected for the patient's age. Mild chronic ischemic/gliotic changes are noted. No specific findings for Warnicke's encephalopathy are identified. There is no evidence of intracranial hemorrhage or mass. The ventricular size is normal. There is no evidence of shift of the midline structures. No abnormal extra-axial fluid collection is identified. The posterior fossa and brainstem have an unremarkable appearance. No area of abnormal restricted diffusion is identified. Normal major vessel vascular flow voids are seen. Widespread sinus mucosal thickening is seen. IMPRESSION: Generalized atrophy, greater than expected for the patient's age. Mild chronic ischemic/gliotic changes. No acute intracranial abnormality identified. Widespread sinusitis. Authenticated and ERN
[2024-06-14] MEDS: THIAMINE HCL IV ×3 (06:35→21:53)
[2024-06-14] MEDS: SODIUM CHLORIDE 0.9% IV ×3 (06:35→21:53)
[2024-06-14 06:49] LABS: Basophils % 0.2 % (0.1-2.0); Eosinophils # 0.1 K/mm3 (0.0-0.4); Eosinophils % 0.8 % (0.1-12.0); Hematocrit 34.6 % (42.0-52.0); Lymphocytes # 0.7 K/mm3 (0.7-4.5); Lymphocytes % 11.8 % (10-50); Mean Corpuscular HGB Conc 34.5 g/dL (31.8-35.4); Mean Corpuscular Hemoglobin 37.6 pg (27.0-31.2); Mean Corpuscular Volume 108.9 fl (80-94); Mean Platelet Volume 7.9 fl (7.4-10.4); Monocytes # 1.2 K/mm3 (0.1-1.0); Neutrophils # 4.1 K/mm3 (1.8-7.8); Neutrophils % 67.2 % (37.0-80.0); Platelet Count 199 K/mm3 (142-424); Red Blood Count 3.18 M/mm3 (4.60-6.20); Red Cell Distribution Width 13.6 % (11.5-17.5); White Blood Count 6.1 K/mm3 (4.8-10.8)
[2024-06-14 06:50] LABS: Albumin Level 3.8 g/dl (3.5-5.0); Chloride 108 mmol/L (98-107); Sodium 139 mmol/L (136-145)
[2024-06-14 06:53] LABS: Alanine Aminotransferase 48 U/L (12-78); Albumin/Globulin Ratio 1.4 (1.1-1.8); Alkaline Phosphatase 60 U/L (38-126); Anion Gap 8.6 mEq/L (5-15); Aspartate Amino Transferase 90 U/L (17-59); Bilirubin,Total 1.4 mg/dl (0.2-1.3); Blood Urea Nitrogen 8 mg/dl (9-20); Carbon Dioxide 25 mmol/L (22.0-30.0); Cholesterol 171 mg/dl (140-200); Creatinine Clearance Estimated 136 mL/min (50-200); Estimated Glomerular Filt Rate 142 ml/min (>60); GFR (African American) 172 ML/MIN (>60); Globulin 2.8 g/dL (1.3-3.2); Total Protein,Serum 6.6 g/dl (6.3-8.2); Triglycerides 68 mg/dl (30-150); VLDL Cholesterol 14 mg/dL (0-40)
[2024-06-14 06:54] LABS: Calcium 8.4 mg/dl (8.4-10.2); Glucose 94 mg/dl (74-100); HDL Cholesterol 57 mg/dl (40-60); Magnesium 1.9 mg/dl (1.6-2.3)
[2024-06-14 07:04] LABS: MANUAL DIFFERENTIAL MANUAL DIFFERENTIAL (MANUAL DIFF)
[2024-06-14 07:05] LABS: Direct LDL Cholesterol 85.53 mg/dL (100-129)
[2024-06-14 07:23] LABS: Potassium 2.6 mmoL/L (3.5-5.1)
--- NOTE | 2024-06-14 07:41 | HMH.PHAINT1 ---
Pharmacy Intervention Comments: HOME MEDICATIONS VERIFIED VIA OUTPATIENT PHARMACY
--- NOTE | 2024-06-14 08:04 | PC.NURSE ---
Pt. is alert and orientated x 4. was admitted for alcohol withdraw. CIWA scores 4 overnight. Pt. dlept off and on. IVF infusing. VSS, personal items and call [place] in reach. PT went to MRI via WC at change of shift.
[2024-06-14 08:10] LABS: Lymphocytes % 13 % (10-50); Macrocytosis 1+; Monocytes % 22 % (2-9); Neutrophils % 65 % (42-76); Platelet Estimate Normal; Total Cells Counted 100
[2024-06-14 08:41] LABS: Hemoglobin 11.9 g/dL (14.1-18.0)
[2024-06-14] MEDS: IRBESARTAN 150MG TAB 150 MG PO (09:10)
[2024-06-14] MEDS: POTASSIUM CHLORIDE 20MEQ TAB 40 MEQ PO ×3 (09:10→15:15)
[2024-06-14] MEDS: ENOXAPARIN 40MG/0.4ML SYRINGE 40 MG SUBCUT (09:11)
--- NOTE | 2024-06-14 09:34 | HMH.PTEV ---
Physical Therapy Evaluation Rehab PT IP Evaluation Start: 06/13/24 21:47 Freq: ONCE Status: Active Protocol: Document 06/14/24 09:02 OMEGA (Rec: 06/14/24 09:34 OMEGA [id number]) Subjective/History History History Per H&P: Reilly Paniagua is a 49 year old male with a medical history significant for alcohol use disorder, hypertension who presents with worsening lower extremity gait and weakness. He states it began a few weeks ago and has progressively gotten worse . Now, he is not able to ambulate without assistance from his friends. He states he drink about 5-6 beers a day, and has been smoking for 30+ years. On interviewing, patient does exhibit intermittent confusion and forgetfulness. He also has right sided facial droop. No history of CVA or cardiac disease. Workup in the ED AGAP 19.8, AST/ALT 108/60, B12 960 , folate > 20. Head/neck CT/ CTA were unremarkable. He received Ativan for suspected alcohol withdrawal, patient was tremulous on exam. Case discussed with ED provider and decision was made to admit patient for alcohol withdrawal and progressive debility. Subjective Subjective PLOF: IND without AD use. Not driving. Does not own an AD. Home: Lives alone in a single- wide trailer with 4 SATYA with rails. Available Assistance: Has family nearby that can check in on him on occasion. Reports it would be difficult to have someone stay with him FT. New diagnosis of cancer in past 12 No months? Rehab PT IP Eval Objective Appearance Patient Behavior Appropriate,Cooperative Patient Orientation Person,Birthday,Situation Difficulty following instructions none Speech Pattern Clear Ambulation Patient Able to Ambulate Yes Ambulation Observation IP General Gait Pattern Observation Antalgic Gait Ambulation Distance (feet) 100 Ambulation Assistive Device Rolling Walker Ambulation Ability Contact Guard/Hand Hold Balance Ability to Arise Able, uses arms to help Sitting Balance Steady, safe Standing Balance Steady, wide stance Dynamic Sitting Balance Ability Good Dynamic Standing Balance Ability Fair Transfers Bed Transfer Ability Independent Sit to Stand Bed Transfer Ability Supervision/Stand by Rehab PT IP prob,goals,plan Problems Date of Evaluation: 06/14/24 PT IP Problems Transfers,Gait,Balance,Safety Rehab Potential Rehab Potential Good Equipment Needs Assistive Devices Rolling / Wheeled Walker Plan PT Intervention Plan Gait,Balance,Therapeutic Exercise Other Intervention Plan 1-2 times Discharge Goals Sit to Stand Chair Transfer Ability Independent Ambulation Assistive Device Rolling Walker Ambulation Distance (feet) 150 Discharge Plan PT Discharge Plan Initial physical therapy evaluation performed. Patient presents below baseline at this time in functional mobility, transfers, and gait. Pt's balance is impaired secondary to ataxic movements in all extremities. Gait improved once RW was introduced. Pt would benefit from skilled PT while at [facility] to prevent further functional decline and maximize safety with mobility. Pt safe to d/c home when deemed medically necessary d/t current level of mobility and home set-up. PT needs RW prior to d/c to maximize safety with mobility. PT educated pt on fall prevention d/t ataxia (proper footwear, RW, avoiding obstacles, taking time). PT recommending home health PT services to address deficits. Eval Complexity Eval Charge Codes 02604 - Moderate Complexity PHYSICIAN CERTIFICATION: I certify the specified therapy services for Reilly Paniagua are required, authorized, and reviewed every 30 days.
[2024-06-14] MEDS: MAGNESIUM SULFATE IN WATER 2 GM/50 ML PIGGYBACK IV (09:38)
--- NOTE | 2024-06-14 09:44 | PC.NURSE ---
due to concerns expressed by mine shifter nurse regarding pt mental health/depression/safety in report, i questioned the pt regarding his feelings, environmental needs at home and mental health medication regime at home. pt expressed to me that he has not had any issues with his schizophrenia and paranoia since 2007 . he stated that he takes his olanzapine nightly and that it controls his symptoms well. has contact with a psychiatrist via phone regularly, but could not tell me his name. states that he has support of friends at home and all necessities. Also states that he does not and has not ever had any suicidal ideation or feelings of harming others. the only concern that the pt verbalized was that he gets anxious slightly when placed in new situations or environments. educated pt that this is a judgment free zone and that we are all here to help him both physically and mentally. pt was appreciative and verbalized that he understands & will inform staff if he develops any psychological issues or concerns. pt has no further questions or concerns at this time.
--- NOTE | 2024-06-14 09:49 | HMH.OTEV ---
OT Inpatient Evaluation Rehab OT IP Evaluation Start: 06/13/24 21:47 Freq: ONCE Status: Active Protocol: Document 06/14/24 09:42 [facility] (Rec: 06/14/24 09:49 [facility] [id number]) Rehab OT IP Assessment Subjective History Pt oriented x 3 on arrival and agreeable to engage in therapy evaluation. Pt was admitted on 06/13/24 due to alcohol withdrawal. History and Physical: Reilly Paniagua is a 49 year old male with a medical history significant for alcohol use disorder, hypertension who presents with worsening lower extremity gait and weakness. He states it began a few weeks ago and has progressively gotten worse . Now, he is not able to ambulate without assistance from his friends. He states he drink about 5-6 beers a day, and has been smoking for 30+ years. On interviewing, patient does exhibit intermittent confusion and forgetfulness. He also has right sided facial droop. No history of CVA or cardiac disease. Workup in the ED AGAP 19.8, AST/ALT 108/60, B12 960 , folate > 20. Head/neck CT/ CTA were unremarkable. He received Ativan for suspected alcohol withdrawal, patient was tremulous on exam. Case discussed with ED provider and decision was made to admit patient for alcohol withdrawal and progressive debility. Subjective I have been having a hard time walking. Prior to being in the hospital , pt reports he lived alone. Pt claims normally he is independent with all ADLs and IADLs. Pt normally does not require any type of AE during functional transfers. Pt does have 4 steps to enter his home. Objective Patient Orientation Person,Place,Birthday Right Upper Extremity Gross ROM Min Limitation <25% Left Upper Extremity Gross ROM Min Limitation <25% Shoulder ROM Limitations Muscle Weakness Elbow ROM Limitations Muscle Weakness Wrist Limitations of Range of Motion Muscle Weakness Bed Mobility bed mobility-scooting,bed mobility - supine/sit Assist Level Supervision/Stand by Transfer Training Sit/Stand Transfer Assist Level Contact Guard/Hand Hold Lower Body Dressing Ability Standby Assistance Performing Toilet Hygiene Ability Contact Guard Overall Commode/Toilet Transfer Ability Contact Guard Commode/Toilet Transfer Technique Sit to/from Ambulatory Rehab OT IP prob,goals,plan Problems Date of Evaluation: 06/14/24 OT IP Problems Bed Mobility,Transfers,Balance ,Self care,Safety Rehab Potential Rehab Potential Good Equipment Needs Assistive Devices Rolling / Wheeled Walker Plan OT intervention Plan Bed Mobility,Transfers,Balance ,Self care,Safety,Therapeutic Exercise OT Plan Frequency Daily Duration LOS Discharge Goals Bed Mobility Ability Standby Assistance Sit to Stand Chair Transfer Ability Supervision/Stand by Chair Transfer Ability Supervision/Stand by Chair Transfer Technique Sit to/from Ambulatory Chair Transfer Assistive Devices Rolling Walker Feeding Ability Assist with Tray Set Up Lower Body Dressing Ability Standby Assistance Upper Body Dressing Ability Standby Assistance Bathing Ability Minimal Assistance Performing Toilet Hygiene Ability Standby Assistance Overall Commode/Toilet Transfer Ability Standby Assistance Commode/Toilet Transfer Technique Sit to/from Ambulatory Commode/Toilet Transfer Assistive Grab Bars Devices Oral Care Assist Standby Assistance Decrease in Endurance Yes Discharge Plan OT Discharge Plan Pt will continue to be seen for OT services while at [facility]. Pt can return home once he is medically stable per physician. Therapist does recommend HH OT evaluation upon returning home to continue with skilled therapy services. Continued skilled therapy is important in order for patient to improve strength, safety, endurance, ADL independence, and functional transfers to reach PLOF. Eval Complexity Eval Charge Codes 72080 - Moderate Complexity PHYSICIAN CERTIFICATION: I certify the specified therapy services for Reilly Paniagua are required, authorized, and reviewed every 30 days.
--- NOTE | 2024-06-14 10:24 | SW/DCPLANNER ---
I spoke w/ this patient regarding plans once medically stable for discharge. PT/OT evaluated patient and recommended home health services at time of discharge. I did discuss home health w/ patient this AM. Patient stated that he would like to see how he is doing prior to discharge before committing to home health services. Patient does not feel that he currently needs home health services. Patient has requested a rolling walker from [facility]. I will continue to follow up w/ patient to assist w/ any needs/new orders. Discharge date is unknown at this time.
--- NOTE | 2024-06-14 11:56 | CARE MANAGER ---
Addendum entered by Berta Hardwick RN 06/16/24 13:13: Entered incorrect information. Patient not with recent amputation. He does have a mobility impairment due to weakness and other acute medical problems. Original Note: Patient will recent amputation that has caused a mobility impairment that cannot be corrected with a cane, but there is potential for ambulation. GURMEET Caputo
[2024-06-14 13:39] LABS: Barbiturates Screen,Urine Negative ng/ml (<200)
[2024-06-14 13:40] LABS: Benzodiazepines Screen,Urine Negative ng/ml (<200)
[2024-06-14 13:41] LABS: Amphetamine/Metha Screen,Urine Negative ng/ml (<1000); Cannabinoid Screen,Urine Negative ng/ml (<50)
[2024-06-14 13:42] LABS: Cocaine Screen,Urine Negative ng/ml (<300); Methadone Screen,Urine Negative ng/ml (<300)
[2024-06-14 13:43] LABS: Opiate Screen,Urine Negative ng/ml (<300)
[2024-06-14 13:44] LABS: Phencyclidine Screen,Urine Negative ng/ml (<25)
[2024-06-14] MEDS: THIAMINE HCL 300 MG in 0.9 % SODIUM CHLORIDE 50 ML 204 MG IV (14:54)
--- NOTE | 2024-06-14 15:52 | PC.NURSE ---
Pt has been in the chair for majority of the shift. remains a&o, tolerating ra. pt has ambulated the hallway with PT and has also ambulated to the bathroom numerous times with standby assistance and the use of a rolling walker. pt expresses that he has no feelings of anxiety, no tactile, auditory or visual disturbances. moderate tremors noted when pt extends arms. CIWA scores have remained at 4 @ 0800, 1200 and 1600. pt has no required medication. pt does not express any pain. seizure precautions in place. peer support and behavioral health consulted. pt has no needs at this time. call light within reach.
--- NOTE | 2024-06-14 17:11 | PEERSUPPORT ---
Peer Support Note Patient Information Patient Information: DOS: 06/14/2024 ? Reason: ETOH/AUD Ps Follow up ? Patient is setting up in chair at bedside, he shares openly his experience since being admitted saying I was a sick man, and was not even able to walk . He is proud to share that he walked around the halls of the second floor with the help of his IV pole and nurse. ? Pt expressed gratitude to staff in making his hospital stay easier saying they have taken good care of me . Ps provided active listening with acknowledgement to his strengths and mindset giving praise on progress made and attitude during a challenging situation. ? Motivation for Change: Patients says I believe I am done with drinking . He continues to share his thoughts behind realization: ? -Cost and benefit- In regard to physical health, financial strains and gains, lack of self-awareness, and consequences to self from negative people he associates with while drinking.? ? -Pt reflects to when he refrained from drinking in the past that lasted 18 months by choice, identifying his strength and mindset change with awareness of process and timeline of withdrawal symptoms. ? Plan for Prevention: Boundaries: People, places, things Self-awareness: Access points to alcohol, people who enable, rational vs. irrational thinking? Healthy communication: Discussing plan of recovery with family and friends who are supportive to his recovery. Discuss with Dr. Ramirez of medication options for AUD. Ps will follow up to offer positive support and guidance for recovery. Thank you for allowing [facility] to assist in caring for the patient!
--- NOTE | 2024-06-14 18:35 | EXP.PN ---
Subjective *Date: 06/14/24 *Time: 21:55 Interval history: Continues to have lateral nystagmus, ataxia. Exam Data for Last 24 hours Vital signs and Labs for Last 24 Hours: Temp Pulse Resp BP Pulse Ox O2 Del Method 97.6 F 72 20 134/83 100 Room Air 06/14/24 12:00 06/14/24 16:00 06/14/24 16:00 06/14/24 16:00 06/14/24 16:00 06/14/24 17:00 Laboratory Results - last 24 hr 06/13/24 11:56: Urine Opiates Screen Negative, Urine Methadone Screen Negative, Ur Barbituates Screen Negative, Ur Phencyclidine Scrn Negative, Ur Amphetamines Screen Negative, U Benzodiazepines Scrn Negative, Urine Cocaine Screen Negative, U Marijuana (THC) Screen Negative 06/13/24 14:50: Folate > 20.00, HIV 1&2 Antibody Rapid Nonreactive 06/14/24 05:41: WBC 6.1 D, RBC 3.18 L, Hgb 11.9 L D, Hct 34.6 L, MCV 108.9 H, MCH 37.6 H, MCHC 34.5, RDW 13.6, Plt Count 199, MPV 7.9, Neut % (Auto) 67.2, Lymph % (Auto) 11.8, [place] % (Auto) 20.0 H D, Eos % (Auto) 0.8, Baso % (Auto) 0.2, Neut # (Auto) 4.1, Lymph # (Auto) 0.7, [place] # (Auto) 1.2 H, Eos # (Auto) 0.1, Baso # (Auto) 0.0, Total Counted 100, Neutrophils % (Manual) 65, Lymphocytes % (Manual) 13, Monocytes % (Manual) 22 H, Platelet Estimate Normal, Macrocytosis 1+, Sodium 139, Potassium 2.6 L* D, Chloride 108 H, Carbon Dioxide 25, Anion Gap 8.6, BUN 8 L D, Creatinine 0.60 L, Estimated Creat Clear 136, Estimated GFR 142, Est GFR ( Amer) 172, Glucose 94, Calcium 8.4, Magnesium 1.9 D, Total Bilirubin 1.4 H, AST 90 H, ALT 48, Alkaline Phosphatase 60, Total Protein 6.6, Albumin 3.8 D, Globulin 2.8, Albumin/Globulin Ratio 1.4, Triglycerides 68, Cholesterol 171, LDL Cholesterol Direct 85.53 L, VLDL Cholesterol 14, HDL Cholesterol 57, Cholesterol/HDL Ratio 3.0 I & O for Last 24 hours: Intake & Output 06/11/24 06/12/24 06/13/24 06/14/24 23:59 23:59 23:59 23:59 Intake Total 1520 / 1520 Output Total 0 / 0 700 / 700 Balance 0 / 440 820 / 820 Weight 64.41 kg 66.134 kg Constitutional Constitutional: no acute distress *Routine HEENT Exam Head: Present normocephalic Eye: Present EOMI and PERRL ENT: Present mucous membranes moist *Routine Neck Exam Neck: Present supple; Absent lymphadenopathy *Routine Respiratory Exam Respiratory: Present CTA bilaterally *Routine Cardiovascular Exam Cardiovascular: Present RRR *Routine Abdominal Exam Abdominal: Present soft and normoactive bowel sounds; Absent tenderness *Routine Extremities Exam Extremities: Absent cyanosis, clubbing or edema *Routine Skin Exam Skin: Present warm; Absent rash *Routine Neurological Exam Neurological: Present alert Comments: Lateral nystagmus. Assessment and Plan *Assessment and plan (1) Lower extremity weakness: Status: Acute Category: Medical Code(s): R29.898 - Other symptoms and signs involving the musculoskeletal system (2) Alcoholic liver disease: Status: Acute Category: Medical Code(s): K70.9 - Alcoholic liver disease, unspecified (3) Alcohol use disorder: Status: Acute Category: Medical Code(s): F10.90 - Alcohol use, unspecified, uncomplicated (4) Alcohol withdrawal: Status: Acute Category: Medical Code(s): F10.939 - Alcohol use, unspecified with withdrawal, unspecified Plan Reilly Paniagua is a 49 year old male with a medical history significant for alcohol use disorder, hypertension who presents with worsening lower extremity gait and weakness. He states it began a few weeks ago and has progressively gotten worse. Now, he is not able to ambulate without assistance from his friends. He states he drink about 5-6 beers a day, and has been smoking for 30+ years. On interviewing, patient does exhibit intermittent confusion and forgetfulness. He also has right sided facial droop. No history of CVA or cardiac disease. Workup in the ED AGAP 19.8, AST/ALT 108/60, B12 960, folate > 20. Head/neck CT/CTA were unremarkable. He received Ativan for suspected alcohol withdrawal, patient was tremulous on exam. Case discussed with ED provider and decision was made to admit patient for alcohol withdrawal and progressive debility. #Wernicke's encephalopathy #Lower extremity ataxia/weakness - Lateral nystagmus, intermittent confabulation/confusion, severe ataxia in setting of chronic alcohol use suggests this. - Follow-up thiamine level, although does not always correlate. - IV thiamine 500mg Q8h, increased from 200mg. Will need at least for 2 days, follow-up on symptoms. - Follow-up brain MRI. - PT/OT consulted, recommended home health with RW. #Alcohol use disorder #Alcohol withdrawal - CIWA protcol. Ativan as needed for score > 7. Has not needed Ativan during hospital course. - Consider naltrexone on discharge, however patient is not interested. #Hypertension - Resume home losartan. FULL CODE Levonox 40mg
[2024-06-14] MEDS: OLANZapine 5 MG ODT TABLET SL (20:41)
[2024-06-15] VITALS (7 sets, daily range): BP systolic 133–160; BP diastolic 81–99; PULSE 60–90; RESP 14–18; TEMP 36.6–36.9; O2SAT 98–100; BMI 20.4
[2024-06-15] MEDS: SODIUM CHLORIDE 0.9% IV ×3 (05:49→21:51)
[2024-06-15] MEDS: THIAMINE HCL IV ×3 (05:49→21:51)
--- NOTE | 2024-06-15 06:10 | PC.NURSE ---
49 yo male pt admitted with alcohol withdraw. pt is A/O X 4. CIWA score 4 or less throughout shift. he has been able to ambulate with walker and assist of 1 to BR. Pt has denied pain, discomfort, nausea. He reports having slept well through the night. VS have been stable through shift, NSR per tele
[2024-06-15 06:15] LABS: Chloride 110 mmol/L (98-107)
[2024-06-15 06:16] LABS: Potassium 3.1 mmoL/L (3.5-5.1); Sodium 140 mmol/L (136-145)
[2024-06-15 06:17] LABS: Basophils % 0.2 % (0.1-2.0); Eosinophils # 0.1 K/mm3 (0.0-0.4); Eosinophils % 0.9 % (0.1-12.0); Hematocrit 37.3 % (42.0-52.0); Hemoglobin 12.5 g/dL (14.1-18.0); Lymphocytes % 18.1 % (10-50); Mean Corpuscular HGB Conc 33.4 g/dL (31.8-35.4); Mean Corpuscular Hemoglobin 37.5 pg (27.0-31.2); Mean Corpuscular Volume 112.1 fl (80-94); Mean Platelet Volume 7.9 fl (7.4-10.4); Monocytes # 1.2 K/mm3 (0.1-1.0); Monocytes % 21.9 % (1.7-9.3); Neutrophils # 3.1 K/mm3 (1.8-7.8); Neutrophils % 58.9 % (37.0-80.0); Platelet Count 214 K/mm3 (142-424); Red Blood Count 3.33 M/mm3 (4.60-6.20); Red Cell Distribution Width 13.5 % (11.5-17.5); White Blood Count 5.3 K/mm3 (4.8-10.8)
[2024-06-15 06:18] LABS: Alanine Aminotransferase 70 U/L (12-78); Alkaline Phosphatase 53 U/L (38-126); Aspartate Amino Transferase 114 U/L (17-59); Bilirubin,Total 1.7 mg/dl (0.2-1.3); Blood Urea Nitrogen 5 mg/dl (9-20); Creatinine Clearance Estimated 121 mL/min (50-200); Estimated Glomerular Filt Rate 119 ml/min (>60); GFR (African American) 144 ML/MIN (>60)
[2024-06-15 06:19] LABS: Albumin/Globulin Ratio 1.4 (1.1-1.8); Anion Gap 9.1 mEq/L (5-15); Calcium 8.2 mg/dl (8.4-10.2); Carbon Dioxide 24 mmol/L (22.0-30.0); Chol/HDL Ratio 3.5 (1-3.5); Cholesterol 181 mg/dl (140-200); Globulin 2.9 g/dL (1.3-3.2); Glucose 98 mg/dl (74-100); HDL Cholesterol 52 mg/dl (40-60); Magnesium 1.8 mg/dl (1.6-2.3); Total Protein,Serum 6.9 g/dl (6.3-8.2); Triglycerides 82 mg/dl (30-150); VLDL Cholesterol 16 mg/dL (0-40)
[2024-06-15 06:30] LABS: Direct LDL Cholesterol 96.97 mg/dL (100-129)
[2024-06-15 06:38] LABS: MANUAL DIFFERENTIAL MANUAL DIFFERENTIAL (MANUAL DIFF)
[2024-06-15 07:32] LABS: Lymphocytes % 28 % (10-50); Macrocytosis 2+; Monocytes % 19 % (2-9); Neutrophils % 53 % (42-76); Platelet Estimate Normal; Total Cells Counted 100
[2024-06-15] MEDS: IRBESARTAN 150MG TAB 150 MG PO (08:05)
[2024-06-15] MEDS: ENOXAPARIN 40MG/0.4ML SYRINGE 40 MG SUBCUT (08:05)
[2024-06-15] MEDS: MAGNESIUM SULFATE IN WATER 2 GM/50 ML PIGGYBACK IV (10:39)
[2024-06-15] MEDS: POTASSIUM CHLORIDE 20MEQ TAB 40 MEQ PO ×3 (10:39→17:39)
--- NOTE | 2024-06-15 11:00 | P.CONS_ITS ---
History of Present Illness *Admission Date: 06/13/24 *Reason for visit:: alcohol and history of schizophrenia *History of present illness: Patient interviewed in his room. -he is alone -sitting up in his recliner He states that he is here cause he was in bad shape. -that it was all from him drinking -didn't have good balance -falling all over the place -that it got where he was so weak and shaky that he couldn't walk -so he came here -he states that he thinks they are discharging him tomorrow -but he wants to stay longer; until his walking and balance is better He states that he is done with alcohol. -that he has been drinking at least 10 beers per day; every day -for years -that he has quit a bunch of times; but he always starts back up -he states that this is the 1st time he has ever been in the hospital over drinking -and that is enough for him to quit -he states that he started shaking all over and couldn't walk is why he came here -that he was trying to quit on his own at home -and he couldn't do it -he states that he lives alone -and he knew he needed help He states that he has been getting disability since 2007. -for schizophrenia and paranoia. -that he was in [facility] in 2007 for 21 days -related to the paranoia -states that it all started cause he was stressed at work -and he ended up in the hospital for hallucinations -had both visual and auditory -he will go describe what they were -keeps saying 'just things' -he currently takes olanzapine -he denies that he has hallucinations on a regular basis now -if he doesn't have them they are fleeting and do not last long -again would not go into detail here -he states that he sees Dr. Ha in [place] with [facility] -he states that he sees him every 2 months; they do a phone call together -he doesn't want medicine changes; he states that this is the best one he has ever been on -and he doesn't want to be on anything for the alcohol -he states just being here is enough; he is done with it -reports next appointment with Dr. Ha is July; he thinks the [facility] Disclaimer: The information contained in this section may have been updated after the patient was seen, as this information can be updated by other users. Medical History (Updated 06/15/24 @ 11:07 by Avani Hardwick APRN) History of schizophrenia Schizophrenia Alcohol abuse HTN (hypertension) Appendicitis Social History (Updated 06/13/24 @ 18:44 by Vicki Duron RN) Smoking Status: Never smoker second hand exposure: No alcohol intake: current alcohol intake frequency: a few times a week substance use type: former substance user and marijuana current occupational status: other Travel in the last 8 weeks: None household members: family housing: house Review of Systems Review of Systems Review of systems:: other Meds Home Medications and Allergies Home Medications ?Medication ?Instructions ?Recorded ?Confirmed ?Type olanzapine 5 mg tablet 5 mg PO HS 12/17/19 06/14/24 History losartan 100 mg tablet 100 mg PO DAILY 05/03/24 06/14/24 History New Prescriptions to Start Prescriptions: Allergies Allergy/AdvReac Type Severity Reaction Status Date / Time amoxicillin Allergy Hives Verified 06/13/24 15:10 Penicillins Allergy Hives Verified 06/13/24 15:10 Assessment and Plan *Assessment and plan (1) Alcohol use disorder: Status: Acute Category: Medical Code(s): F10.90 - Alcohol use, unspecified, uncomplicated (2) Alcohol withdrawal: Status: Acute Category: Medical Code(s): F10.939 - Alcohol use, unspecified with withdrawal, unspecified (3) History of schizophrenia: Status: Acute Category: Medical Code(s): Z86.59 - Personal history of other mental and behavioral disorders Plan NO changes to care at this time. Continue Olanzapine 5mg at bedtime as prescribed by his psychiatrist.
--- NOTE | 2024-06-15 14:24 | EXP.PN ---
Subjective *Date: 06/15/24 *Time: 14:24 Exam Data for Last 24 hours Vital signs and Labs for Last 24 Hours: Temp Pulse Resp BP Pulse Ox O2 Del Method 98.2 F 90 14 152/98 H 100 Room Air 06/15/24 11:47 06/15/24 12:00 06/15/24 11:47 06/15/24 11:47 06/15/24 11:47 06/15/24 12:59 Laboratory Results - last 24 hr 06/15/24 05:37: WBC 5.3, RBC 3.33 L, Hgb 12.5 L, Hct 37.3 L, MCV 112.1 H, MCH 37.5 H, MCHC 33.4, RDW 13.5, Plt Count 214, MPV 7.9, Neut % (Auto) 58.9, Lymph % (Auto) 18.1, [place] % (Auto) 21.9 H, Eos % (Auto) 0.9, Baso % (Auto) 0.2, Neut # (Auto) 3.1, Lymph # (Auto) 1.0, [place] # (Auto) 1.2 H, Eos # (Auto) 0.1, Baso # (Auto) 0.0, Total Counted 100, Neutrophils % (Manual) 53, Lymphocytes % (Manual) 28, Monocytes % (Manual) 19 H, Platelet Estimate Normal, Macrocytosis 2+, Sodium 140, Potassium 3.1 L, Chloride 110 H, Carbon Dioxide 24, Anion Gap 9.1, BUN 5 L D, Creatinine 0.70, Estimated Creat Clear 121, Estimated GFR 119, Est GFR ( Amer) 144, Glucose 98, Calcium 8.2 L, Magnesium 1.8, Total Bilirubin 1.7 H, AST 114 H D, ALT 70 D, Alkaline Phosphatase 53, Total Protein 6.9, Albumin 4.0, Globulin 2.9, Albumin/Globulin Ratio 1.4, Triglycerides 82, Cholesterol 181, LDL Cholesterol Direct 96.97 L, VLDL Cholesterol 16, HDL Cholesterol 52, Cholesterol/HDL Ratio 3.5 I & O for Last 24 hours: Intake & Output 06/12/24 06/13/24 06/14/24 06/15/24 23:59 23:59 23:59 23:59 Intake Total 1940 / 2490 1230 / 1230 Output Total 0 / 0 700 / 700 0 / 0 Balance 0 / 440 1240 / 1790 1230 / 1230 Weight 64.41 kg 66.134 kg 68.447 kg Constitutional Constitutional: no acute distress *Routine HEENT Exam Head: Present normocephalic Eye: Present EOMI and PERRL ENT: Present mucous membranes moist *Routine Neck Exam Neck: Present supple; Absent lymphadenopathy *Routine Respiratory Exam Respiratory: Present CTA bilaterally *Routine Cardiovascular Exam Cardiovascular: Present RRR *Routine Abdominal Exam Abdominal: Present soft and normoactive bowel sounds; Absent tenderness *Routine Extremities Exam Extremities: Absent cyanosis, clubbing or edema *Routine Skin Exam Skin: Present warm; Absent rash *Routine Neurological Exam Neurological: Present alert Comments: Lateral nystagmus. Assessment and Plan *Assessment and plan (1) Lower extremity weakness: Status: Acute Category: Medical Code(s): R29.898 - Other symptoms and signs involving the musculoskeletal system (2) Alcoholic liver disease: Status: Acute Category: Medical Code(s): K70.9 - Alcoholic liver disease, unspecified (3) Alcohol use disorder: Status: Acute Category: Medical Code(s): F10.90 - Alcohol use, unspecified, uncomplicated (4) Alcohol withdrawal: Status: Acute Category: Medical Code(s): F10.939 - Alcohol use, unspecified with withdrawal, unspecified Plan Reilly Paniagua is a 49 year old male with a medical history significant for alcohol use disorder, hypertension who presents with worsening lower extremity gait and weakness. He states it began a few weeks ago and has progressively gotten worse. Now, he is not able to ambulate without assistance from his friends. He states he drink about 5-6 beers a day, and has been smoking for 30+ years. On interviewing, patient does exhibit intermittent confusion and forgetfulness. He also has right sided facial droop. No history of CVA or cardiac disease. Workup in the ED AGAP 19.8, AST/ALT 108/60, B12 960, folate > 20. Head/neck CT/CTA were unremarkable. He received Ativan for suspected alcohol withdrawal, patient was tremulous on exam. Case discussed with ED provider and decision was made to admit patient for alcohol withdrawal and progressive debility. #Wernicke's encephalopathy #Lower extremity ataxia/weakness - Lateral nystagmus, intermittent confabulation/confusion, severe ataxia in setting of chronic alcohol use suggests this. - Follow-up thiamine level, although does not always correlate. - Continue IV thiamine 500mg Q8h, increased from 200mg. Continues to have symptoms but improved today. Anticipate discharge in 1-2 continued improvement in symptoms. - Brain MRI shows generalized atrophy, greater than expected for the patient's age. Mild chronic ischemic/gliotic changes. - PT/OT consulted, recommended home health with RW. #Alcohol use disorder #Alcohol withdrawal - CIWA protcol. Ativan as needed for score > 7. Has not needed Ativan during hospital course. - Consider naltrexone on discharge, however patient is not interested at this time. #Hypertension - Resume home losartan. FULL CODE Levonox 40mg
--- NOTE | 2024-06-15 16:56 | PC.NURSE ---
Pt admitted with alcohol withdrawal. CIWA scores have been 1 all shift. Pt cooperative with PT today and has ambulated through the halls with walker. He has been up to bedside chair most of shift. Pt met with scheduling specialist today. Pt stated he is feeling good today. No complaints at this time.
--- NOTE | 2024-06-15 20:24 | PEERSUPPORT ---
Peer Support Note Patient Information Patient Information: DOS: 06/15/2024 ? Reason: Ps follow up ETOH/AUD Admitted on 06/13/2024 ? ? Pt is open to share of his recovery plan in action saying I have someone going to my house to clean the alcohol cans up and have them out when I get home. ? Ps provides praise with emphasis on his preparation for returning home encouraging rational thinking to prevent relapse. ? Ps and pt briefly discusses importance of changes in lifestyle based on experience to build self-awareness and hope.? - Self-care -Diet -Exercise -Importance of taking medications as prescribed and directed on labels. (Accountability from support person to make a call daily) ? Pt discloses his father was an alcoholic that drank until his last breath, 20 years ago. He says he does not want to go out of this world like that or put? his mother through that again. He states he has been through a lot of counseling for his mental health and knows the benefits of counseling for his overall health. ? Ps encourages him to seek therapy to maintain his goals and journey of wellness. Plan of Action: Naltrexone discussed, pt denies any other medications other than his home meds already being prescribed. ? Pt agrees to follow up phone calls with [facility]. ? Ps provided information: -List of referrals to medical detox/ stabilization, inpatient treatment, outpatient treatment, and contact information. -Education to Alcohol Use Disorder. -Calendars for priority appointments for follow up -Medication List- -Education on Nutrition
[2024-06-15] MEDS: OLANZapine 5 MG ODT TABLET SL (21:50)
[2024-06-16] VITALS: BP 158/104; PULSE 73; PULSE 90; RESP 16; TEMP 36.8; O2SAT 100
[2024-06-16 04:00] VITALS: BP 136/82; PULSE 75; PULSE 84; RESP 16; TEMP 36.6; O2SAT 97; BMI 20.7
--- NOTE | 2024-06-16 05:52 | PC.NURSE ---
Patient is alert and oriented. No complaints throughout the night. CIWA Q4, 1,1,0. Ambulates to the restroom with standby assist using walker, patient does well. Call light in reach.
[2024-06-16] MEDS: SODIUM CHLORIDE 0.9% IV (06:07)
[2024-06-16] MEDS: THIAMINE HCL IV (06:07)
[2024-06-16 06:49] LABS: Basophils % 0.3 % (0.1-2.0); Eosinophils # 0.1 K/mm3 (0.0-0.4); Eosinophils % 0.8 % (0.1-12.0); Hematocrit 37.7 % (42.0-52.0); Hemoglobin 12.9 g/dL (14.1-18.0); Lymphocytes # 0.9 K/mm3 (0.7-4.5); Lymphocytes % 11.6 % (10-50); Mean Corpuscular HGB Conc 34.3 g/dL (31.8-35.4); Mean Corpuscular Hemoglobin 37.5 pg (27.0-31.2); Mean Corpuscular Volume 109.3 fl (80-94); Mean Platelet Volume 7.9 fl (7.4-10.4); Monocytes # 1.3 K/mm3 (0.1-1.0); Monocytes % 17.5 % (1.7-9.3); Neutrophils # 5.3 K/mm3 (1.8-7.8); Neutrophils % 69.9 % (37.0-80.0); Platelet Count 251 K/mm3 (142-424); Red Blood Count 3.45 M/mm3 (4.60-6.20); Red Cell Distribution Width 13.3 % (11.5-17.5); White Blood Count 7.6 K/mm3 (4.8-10.8)
[2024-06-16 06:50] LABS: Albumin Level 4.2 g/dl (3.5-5.0); Chloride 110 mmol/L (98-107); Potassium 3.5 mmoL/L (3.5-5.1); Sodium 140 mmol/L (136-145)
[2024-06-16 06:52] LABS: Alanine Aminotransferase 113 U/L (12-78); Anion Gap 10.5 mEq/L (5-15); Aspartate Amino Transferase 152 U/L (17-59); Blood Urea Nitrogen 4 mg/dl (9-20); Carbon Dioxide 23 mmol/L (22.0-30.0); Creatinine Clearance Estimated 123 mL/min (50-200); Estimated Glomerular Filt Rate 119 ml/min (>60); GFR (African American) 144 ML/MIN (>60)
[2024-06-16 06:53] LABS: Albumin/Globulin Ratio 1.4 (1.1-1.8); Alkaline Phosphatase 53 U/L (38-126); Bilirubin,Total 1.5 mg/dl (0.2-1.3); Calcium 8.8 mg/dl (8.4-10.2); Chol/HDL Ratio 3.7 (1-3.5); Cholesterol 186 mg/dl (140-200); Glucose 98 mg/dl (74-100); HDL Cholesterol 50 mg/dl (40-60); Total Protein,Serum 7.2 g/dl (6.3-8.2); Triglycerides 73 mg/dl (30-150); VLDL Cholesterol 15 mg/dL (0-40)
[2024-06-16 07:04] LABS: Direct LDL Cholesterol 106.66 mg/dL (100-129)
[2024-06-16 08:00] VITALS: BP 136/92; PULSE 83; PULSE 85; RESP 22; TEMP 36.7; O2SAT 98
[2024-06-16] MEDS: IRBESARTAN 150MG TAB 150 MG PO (08:09)
--- NOTE | 2024-06-16 11:24 | P.DS_ITS ---
General Admission date:: 06/14/24 HPI HPI HPI: Patient interviewed in his room. -he is alone -sitting up in his recliner He states that he is here cause he was in bad shape. -that it was all from him drinking -didn't have good balance -falling all over the place -that it got where he was so weak and shaky that he couldn't walk -so he came here -he states that he thinks they are discharging him tomorrow -but he wants to stay longer; until his walking and balance is better He states that he is done with alcohol. -that he has been drinking at least 10 beers per day; every day -for years -that he has quit a bunch of times; but he always starts back up -he states that this is the 1st time he has ever been in the hospital over drinking -and that is enough for him to quit -he states that he started shaking all over and couldn't walk is why he came here -that he was trying to quit on his own at home -and he couldn't do it -he states that he lives alone -and he knew he needed help He states that he has been getting disability since 2007. -for schizophrenia and paranoia. -that he was in [facility] in 2007 for 21 days -related to the paranoia -states that it all started cause he was stressed at work -and he ended up in the hospital for hallucinations -had both visual and auditory -he will go describe what they were -keeps saying 'just things' -he currently takes olanzapine -he denies that he has hallucinations on a regular basis now -if he doesn't have them they are fleeting and do not last long -again would not go into detail here -he states that he sees Dr. Ha in [place] with [facility] -he states that he sees him every 2 months; they do a phone call together -he doesn't want medicine changes; he states that this is the best one he has ever been on -and he doesn't want to be on anything for the alcohol -he states just being here is enough; he is done with it -reports next appointment with Dr. Ha is July; he thinks the Hospital Course Hospital Course Hospital Course: Reilly Paniagua is a 49 year old male with a medical history significant for alcohol use disorder, hypertension who presents with worsening lower extremity gait and weakness. He states it began a few weeks ago and has progressively gotten worse. Now, he is not able to ambulate without assistance from his friends. He states he drink about 5-6 beers a day, and has been smoking for 30+ years. On interviewing, patient does exhibit intermittent confusion and forgetfulness. He also has right sided facial droop. No history of CVA or cardiac disease. Workup in the ED AGAP 19.8, AST/ALT 108/60, B12 960, folate > 20. Head/neck CT/CTA were unremarkable. He received Ativan for suspected alcohol withdrawal, patient was tremulous on exam. Case discussed with ED provider and decision was made to admit patient for alcohol withdrawal and progressive debility. #Wernicke's encephalopathy #Lower extremity ataxia/weakness - Lateral nystagmus, intermittent confabulation/confusion, ataxia in setting of chronic alcohol use suggests this. - Thiamine level had a failed sent out lab, did not repeat again as patient was already being repleted with IV thiamine. ? Received IV thiamine 200 mg then 500 mg every 8 hours for 3 days. Patient had improvement in ataxia, but still has mild lateral nystagmus. ? Will continue vitamin therapy outpatient. ? Discharged with thiamine 500 mg for 5 days, then 250 mg for 5 days, then 100 mg daily. - PT/OT consulted, recommended home health with RW. Discharged with rolling walker. #Alcohol use disorder #Alcohol withdrawal - CIWA protcol. Ativan as needed for score > 7. Did not needed Ativan during hospital course. - Consulted peers support, due to transportation issues patient is unable to go to peer support clinic. They will check in over the phone. ? Discharged with naltrexone 50 mg daily. Will follow-up with PCP within 1 week. #Hypertension - Resume home losartan. #History of schizophrenic disorder ? Resumed home olanzapine 5 mg. Exam Data for Last 24 hours Vital signs and Labs for Last 24 Hours: Temp Pulse Resp BP Pulse Ox O2 Del Method 98.0 F 83 22 136/92 H 98 Room Air 06/16/24 08:00 06/16/24 08:00 06/16/24 08:00 06/16/24 08:00 06/16/24 08:00 06/16/24 09:00 Laboratory Results - last 24 hr 06/13/24 14:50: Hepatitis C Antibody TNP 06/16/24 05:54: WBC 7.6 D, RBC 3.45 L, Hgb 12.9 L, Hct 37.7 L, MCV 109.3 H, MCH 37.5 H, MCHC 34.3, RDW 13.3, Plt Count 251, MPV 7.9, Neut % (Auto) 69.9, Lymph % (Auto) 11.6, [place] % (Auto) 17.5 H, Eos % (Auto) 0.8, Baso % (Auto) 0.3, Neut # (Auto) 5.3, Lymph # (Auto) 0.9, [place] # (Auto) 1.3 H, Eos # (Auto) 0.1, Baso # (Auto) 0.0, Sodium 140, Potassium 3.5, Chloride 110 H, Carbon Dioxide 23, Anion Gap 10.5, BUN 4 L, Creatinine 0.70, Estimated Creat Clear 123, Estimated GFR 119, Est GFR ( Amer) 144, Glucose 98, Calcium 8.8, Magnesium 2.0 D, Total Bilirubin 1.5 H, AST 152 H D, ALT 113 H D, Alkaline Phosphatase 53, Total Protein 7.2, Albumin 4.2, Globulin 3.0, Albumin/Globulin Ratio 1.4, Triglycerides 73, Cholesterol 186, LDL Cholesterol Direct 106.66, VLDL Cholesterol 15, HDL Cholesterol 50, Cholesterol/HDL Ratio 3.7 H I & O for Last 24 hours: Intake & Output 06/13/24 06/14/24 06/15/24 06/16/24 23:59 23:59 23:59 23:59 Intake Total 1940 / 2490 1749 280 / 280 Output Total 0 / 0 700 / 700 0 / 0 0 / 0 Balance 0 / 440 1240 / 1790 1749 280 / 280 Weight 64.41 kg 66.134 kg 68.447 kg 69.56 kg Constitutional Constitutional: no acute distress *Routine HEENT Exam Head: Present normocephalic Eye: Present EOMI and PERRL ENT: Present mucous membranes moist *Routine Neck Exam Neck: Present supple; Absent lymphadenopathy *Routine Respiratory Exam Respiratory: Present CTA bilaterally *Routine Cardiovascular Exam Cardiovascular: Present RRR *Routine Abdominal Exam Abdominal: Present soft and normoactive bowel sounds; Absent tenderness *Routine Extremities Exam Extremities: Absent cyanosis, clubbing or edema Comments: Lower extremity motor strength 4/5. *Routine Skin Exam Skin: Present warm; Absent rash *Routine Neurological Exam Neurological: Present alert Comments: Lateral nystagmus. Results Data Completed and Pending Labs on day of discharge: Labs from last 24 hours 06/16/24 06/13/24 05:54 14:50 WBC 7.6 D RBC 3.45 L Hgb 12.9 L Hct 37.7 L MCV 109.3 H MCH 37.5 H MCHC 34.3 RDW 13.3 Plt Count 251 MPV 7.9 Neut % (Auto) 69.9 Lymph % (Auto) 11.6 [place] % (Auto) 17.5 H Eos % (Auto) 0.8 Baso % (Auto) 0.3 Neut # (Auto) 5.3 Lymph # (Auto) 0.9 [place] # (Auto) 1.3 H Eos # (Auto) 0.1 Baso # (Auto) 0.0 Sodium 140 Potassium 3.5 Chloride 110 H Carbon Dioxide 23 Anion Gap 10.5 BUN 4 L Creatinine 0.70 Estimated Creat Clear 123 Estimated GFR 119 Est GFR ( Amer) 144 Glucose 98 Calcium 8.8 Magnesium 2.0 D Total Bilirubin 1.5 H AST 152 H D ALT 113 H D Alkaline Phosphatase 53 Total Protein 7.2 Albumin 4.2 Globulin 3.0 Albumin/Globulin Ratio 1.4 Triglycerides 73 Cholesterol 186 LDL Cholesterol Direct 106.66 VLDL Cholesterol 15 HDL Cholesterol 50 Cholesterol/HDL Ratio 3.7 H Hepatitis C Antibody TNP DS: Diagnosis Discharge Diagnosis (1) Lower extremity weakness: Status: Acute Code(s): R29.898 - Other symptoms and signs involving the musculoskeletal system (2) Alcoholic liver disease: Status: Acute Code(s): K70.9 - Alcoholic liver disease, unspecified (3) Alcohol use disorder: Status: Acute Code(s): F10.90 - Alcohol use, unspecified, uncomplicated (4) Alcohol withdrawal: Status: Acute Code(s): F10.939 - Alcohol use, unspecified with withdrawal, unspecified Meds Home Medications and Allergies Home Medications ?Medication ?Instructions ?Recorded ?Confirmed ?Type olanzapine 5 mg tablet 5 mg PO HS 12/17/19 06/14/24 History losartan 100 mg tablet 100 mg PO DAILY 05/03/24 06/14/24 History naltrexone 50 mg tablet 50 mg PO DAILY #30 tabs 06/16/24 Rx thiamine HCl (vitamin B1) 100 mg 100 mg PO DAILY #30 tabs 06/16/24 Rx tablet thiamine HCl (vitamin B1) 250 mg 250 mg PO DAILY 5 days #5 tabs 06/16/24 Rx tablet thiamine HCl (vitamin B1) 500 mg 500 mg PO DAILY 5 days #5 tabs 06/16/24 Rx tablet New Prescriptions to Start Prescriptions: naltrexone Jasiel Schroeder thiamine HCl (vitamin B1) Jasiel Schroeder thiamine HCl (vitamin B1) Jasiel Schroeder thiamine HCl (vitamin B1) Jasiel Schroeder Allergies Allergy/AdvReac Type Severity Reaction Status Date / Time amoxicillin Allergy Hives Verified 06/13/24 15:10 Penicillins Allergy Hives Verified 06/13/24 15:10 Discharge Plan Disposition Patient Disposition: Home, Self-Care Condition: Fair Discharge Order Discharge Orders: Discharge Order (Routine); Ordered 06/16/24 Ordered By: Jasiel Schroeder Follow up Plan Follow up with: Maria Luz Montez APRN [Primary Care Provider] - 06/18/24 10:15 am Prescriptions/Medication Reconciliation: New thiamine HCl (vitamin B1) 500 mg tablet 500 mg PO DAILY 5 Days Qty: 5 0RF Rx Instructions: Take 500 mg for 5 days, then to 250 mg for 5 days, then take 100 mg daily. thiamine HCl (vitamin B1) 250 mg tablet 250 mg PO DAILY 5 Days Qty: 5 0RF thiamine HCl (vitamin B1) 100 mg tablet 100 mg PO DAILY Qty: 30 1RF naltrexone 50 mg tablet 50 mg PO DAILY Qty: 30 0RF Continued olanzapine 5 mg tablet 5 mg PO HS losartan 100 mg tablet 100 mg PO DAILY Patient Comments: TAKE ONE TABLET BY MOUTH EVERY DAY Problem Reconciliation Problems Reviewed?: Yes Patient Discharge Instructions Patient Instructions: Alcohol Withdrawal Print Language: Macedonian Providers Primary Care Provider: Maria Luz Montez Admit Provider: Jasiel Schroeder Attending Provider: Jasiel Schroeder
[2024-06-16 12:00] VITALS: BP 146/87; PULSE 74; RESP 18; TEMP 37.3; O2SAT 99
--- NOTE | 2024-06-19 10:59 | SW/DCPLANNER ---
Spoke with patient on the phone. Patient stated he is doing so much better and that he is able to walk without the walker. Patient missed his DR appointment and is calling to reschedule it. Patient asked if he could take his B1 and B12 together and that he has no other questions or concerns. Patient stated he was able to order picker/assembler his new medicine before he left the hospital. Digna Villarreal
== END 2024-06-16 12:46 | disposition home or self-care (01) | DRG 897 ==
LOC: ER 17:43 → 2ND 17:56
PROVIDERS: Physician Assistant; Admitting Provider Student in an Organized Health Care Education/Training Program; Emergency Provider Emergency Medicine; PCP Nurse Practitioner; Visit Provider Student in an Organized Health Care Education/Training Program
DX: F10.939 Alcohol use, unspecified with withdrawal, unspecified (principal); E51.2 Wernicke's encephalopathy; R29.898 Other symptoms and signs involving the musculoskeletal system; K70.9 Alcoholic liver disease, unspecified; I10 Essential (primary) hypertension; F20.9 Schizophrenia, unspecified; R27.0 Ataxia, unspecified
CPT/HCPCS: 36415; 70450; 70496; 70498; 70551; 80053; 80061; 80307; 80320; 82140; 82607; 82746; 83690; 83735; 84100; 84425; 85007; 85025; 85610; 85730; 86803; 87389; 93005; 97116; 97162; 97166; 97530; 99285; J1650; J3411; J3475; J7030; J7120; Q9967

== ENCOUNTER 2024-07-05 16:27 | Emergency (ER) | payer MEDICARE, MEDICAID, SELFPAY ==
[2024-07-05 18:05] VITALS: BP 117/80; PULSE 87; RESP 18; TEMP 36.8; O2SAT 100; BMI 19.1
--- NOTE | 2024-07-05 18:11 | EXP.UTC ---
Discharge Plan Disposition Patient Disposition: Home, Self-Care Condition: Good Prescriptions Prescriptions: New valacyclovir 1 gram tablet 1,000 mg PO Q8H 7 Days Qty: 21 0RF No Action olanzapine 5 mg tablet 5 mg PO HS losartan 100 mg tablet 100 mg PO DAILY Patient Comments: TAKE ONE TABLET BY MOUTH EVERY DAY thiamine HCl (vitamin B1) 500 mg tablet 500 mg PO DAILY 5 Days Qty: 5 0RF Rx Instructions: Take 500 mg for 5 days, then to 250 mg for 5 days, then take 100 mg daily. thiamine HCl (vitamin B1) 250 mg tablet 250 mg PO DAILY 5 Days Qty: 5 0RF thiamine HCl (vitamin B1) 100 mg tablet 100 mg PO DAILY Qty: 30 1RF naltrexone 50 mg tablet 50 mg PO DAILY Qty: 30 0RF Referrals Follow up/Referrals: Provider,Referral, MD [Primary Care Provider] - See instructions Activity Restrictions/Add. Instructions Additional Instructions/Restrictions: Take medication as prescribed Make appointment with eye doctor and get an eye exam where rash is in close proxemity to eye Follow up with your Family Doctor if no improvement or any worsening of symptom Straight to ER if any life threatening symptoms Clinical Impressions Clinical Impression: Shingles Instructions Patient Instructions: SAMPSON Golden for Shingles Print Language Print Language: Syriac Discharge ED Provider: Kimmy Carter [facility] HPI General Stated complaint: bumps , red and itchy on head and face Time Seen by Provider: 07/05/24 18:10 History of Present Illness Provider Complaint: Patient states that he noticed he was breaking out in a rash on the right side of his forehead, right side of head and face States that they are itchy and sore/tender to the touch and even his skin feels sore States that today it was bothering him so he came in to get checked Related Data Home Medications ?Medication ?Instructions ?Recorded ?Confirmed olanzapine 5 mg tablet 5 mg PO HS 12/17/19 06/14/24 losartan 100 mg tablet 100 mg PO DAILY 05/03/24 06/14/24 Previous Rx's ?Medication ?Instructions ?Recorded naltrexone 50 mg tablet 50 mg PO DAILY #30 tabs 06/16/24 thiamine HCl (vitamin B1) 100 mg 100 mg PO DAILY #30 tabs 06/16/24 tablet thiamine HCl (vitamin B1) 250 mg 250 mg PO DAILY 5 days #5 tabs 06/16/24 tablet thiamine HCl (vitamin B1) 500 mg 500 mg PO DAILY 5 days #5 tabs 06/16/24 tablet valacyclovir 1 gram tablet 1,000 mg PO Q8H 7 days #21 tabs 07/05/24 Allergies Allergy/AdvReac Type Severity Reaction Status Date / Time amoxicillin Allergy Hives Verified 06/13/24 15:10 Penicillins Allergy Hives Verified 06/13/24 15:10 [facility] Disclaimer: The information contained in this section may have been updated after the patient was seen, as this information can be updated by other users. Medical History (Updated 07/05/24 @ 18:17 by Kimmy Carter APRN) Alcohol withdrawal Uncomplicated alcohol withdrawal Alcohol abuse with withdrawal, uncomplicated Left anterior knee pain Fracture of fifth toe, right, closed Ankle sprain Left knee pain Right ankle pain Right foot pain Right ankle sprain Avulsion fracture of lateral malleolus Acne vulgaris Fall with injury Chest wall pain Closed fracture of rib of right side Impetigo Pustular acne History of schizophrenia Schizophrenia Alcohol abuse HTN (hypertension) Appendicitis Social History (Updated 06/13/24 @ 18:44 by Vicki Duron RN) Smoking Status: Never smoker second hand exposure: No alcohol intake: current alcohol intake frequency: a few times a week substance use type: former substance user and marijuana current occupational status: other Travel in the last 8 weeks: None household members: family housing: house Have you lived/traveled outside [place] in past 30 days?: No Contact w/someone who lives/traveled outside [place] past 30 days?: No Exposure to someone with infectious disease in past 14 days?: No Do you have a fever (greater than 100.4 F or 38 C)?: No Have you tested positive for COVID-19: No Exposed to someone with COVID-19 in past 14 days?: No Do you have a sore throat?: No Do you have a cough?: No Do you have any weakness?: No Do you have any diarrhea?: No Are you experiencing any unusual bleeding?: No Do you have any muscle aches/pain?: No Do you have any abdominal pain?: No Are you experiencing loss of taste or smell?: No ROS Obtained: Yes All systems reviewed & no additional complaints except as documented and Yes Systems reviewed as appropriate & no additional complaints except as documented Constitutional Constitutional: Reports system reviewed and no additional complaints, except as documented and Reports as per HPI Respiratory Respiratory: Reports system reviewed and no additional complaints, except as documented and Reports as per HPI Gastrointestinal Gastrointestingal: Reports system reviewed and no additional complaints, except as documented and as per HPI Musculoskeletal Musculoskeletal: Reports system reviewed and no additional complaints, except as documented and Reports as per HPI Integumentary/Breasts Skin/Breast: Reports system reviewed and no additional complaints, except as documented, Reports as per HPI and Reports rash Physical Exam General General appearance: alert and in no apparent distress ENT ENT exam: Present mucous membranes moist Respiratory Respiratory exam: Present normal lung sounds bilaterally; Absent respiratory distress or wheezes Cardiovascular Cardiovascular exam: Present regular rate, normal rhythm and normal heart sounds Abdominal Exam Abdominal exam: Present soft and normal bowel sounds; Absent distention, tenderness or guarding Neurological Exam Neurological exam: Present alert, oriented X3 and normal gait Skin Skin exam: Present rash (small blister like rash noted on right side of forehead above eyebrow, right side of face and head appears like shingles) Medical Decision Making Medical Records Screening: Per USPSTF and CDC recommendations, given the prevalence of disease in our region, it is our hospital?s policy to screen for HIV and viral Hepatitis for all patients aged 18 and over and those with ongoing risk factors. Suraj Inquiry Pt receiving controlled substance: No Suraj was queried for this patient: No Medical Decision Narrative: medication discussed with pharmacy
[2024-07-05 18:21] VITALS: BP 117/80; PULSE 87; RESP 18; TEMP 36.8; O2SAT 100
== END 2024-07-05 18:23 | disposition home or self-care (01) ==
PROVIDERS: Emergency Provider Nurse Practitioner
DX: B02.9 Zoster without complications (principal); R21 Rash and other nonspecific skin eruption
CPT/HCPCS: 99212; G0381

== ENCOUNTER 2024-10-23 13:35 | Outpatient (CLI) | payer MEDICARE, MEDICAID, SELFPAY ==
[2024-10-23 14:21] LABS: Basophils % 0.4 % (0.1-2.0); Eosinophils # 0.1 K/mm3 (0.0-0.4); Hematocrit 39.6 % (42.0-52.0); Hemoglobin 13.8 g/dL (14.1-18.0); Lymphocytes # 1.6 K/mm3 (0.7-4.5); Lymphocytes % 17.4 % (10-50); Mean Corpuscular HGB Conc 34.8 g/dL (31.8-35.4); Mean Corpuscular Hemoglobin 31.5 pg (27.0-31.2); Mean Corpuscular Volume 90.4 fl (80-94); Mean Platelet Volume 9.2 fl (7.4-10.4); Monocytes # 1.2 K/mm3 (0.1-1.0); Monocytes % 13.3 % (1.7-9.3); Neutrophils % 67.7 % (37.0-80.0); Nucleated Red Blood Cells # 0 10^3/uL; Nucleated Red Blood Cells % 0 %; Platelet Count 369 K/mm3 (142-424); Red Blood Count 4.38 M/mm3 (4.60-6.20); Red Cell Distribution Width 12.1 % (11.5-17.5); White Blood Count 8.9 K/mm3 (4.8-10.8)
[2024-10-23 15:37] LABS: Alanine Aminotransferase 20 U/L (12-78); Albumin Level 4.2 g/dl (3.5-5.0); Albumin/Globulin Ratio 1.2 (1.1-1.8); Alkaline Phosphatase 80 U/L (38-126); Anion Gap 14.2 mEq/L (5-15); Aspartate Amino Transferase 30 U/L (17-59); Bilirubin,Total 2.1 mg/dl (0.2-1.3); Blood Urea Nitrogen 9 mg/dl (9-20); Calcium 9.6 mg/dl (8.4-10.2); Carbon Dioxide 26 mmol/L (22.0-30.0); Chloride 104 mmol/L (98-107); Estimated Glomerular Filt Rate 119 ml/min (>60); GFR (African American) 144 ML/MIN (>60); Globulin 3.5 g/dL (1.3-3.2); Glucose 99 mg/dl (74-100); Potassium 4.2 mmoL/L (3.5-5.1); Sodium 140 mmol/L (136-145); Total Protein,Serum 7.7 g/dl (6.3-8.2)
== END 2024-10-23 23:59 | disposition home or self-care (01) ==
LOC: LAB 13:36
PROVIDERS: PCP Nurse Practitioner; Visit Provider Nurse Practitioner Family
DX: K70.0 Alcoholic fatty liver (principal); K70.9 Alcoholic liver disease, unspecified; R74.8 Abnormal levels of other serum enzymes
CPT/HCPCS: 36415; 80053; 85025

== ENCOUNTER 2024-10-29 10:43 | Outpatient (CLI) | payer MEDICARE, MEDICAID, SELFPAY ==
--- NOTE | 2024-10-29 11:00 | US_ITS ---
FINAL REPORT TECHNIQUE: Sonographic images of the right upper quadrant were obtained. CLINICAL HISTORY: Alcoholic liver disease COMPARISON: None FINDINGS: PANCREAS: Unremarkable. LIVER: There is mild fatty infiltration of the liver. No focal hepatic lesion. The portal vein is patent. There is normal directional flow. No intrahepatic biliary ductal dilatation. GALLBLADDER: No gallstones. No gallbladder wall thickening or pericholecystic fluid. COMMON DUCT: 6 mm. Normal for age. RIGHT KIDNEY: The right kidney measures 11.0 cm. There is no hydronephrosis, mass, or stone. FREE FLUID: None. IMPRESSION: Mild fatty liver. Reviewed, Interpreted and Dictated by Arianna Randolph MD Transcribed by Blossom Torres Authenticated and [facility]
== END 2024-10-29 23:59 | disposition home or self-care (01) ==
LOC: RAD 10:44
PROVIDERS: PCP Nurse Practitioner; Visit Provider Nurse Practitioner Family
DX: K70.0 Alcoholic fatty liver (principal); R74.8 Abnormal levels of other serum enzymes
CPT/HCPCS: 76705

== ENCOUNTER 2025-04-08 13:40 | Outpatient (CLI) | payer MEDICARE, MEDICAID, SELFPAY ==
[2025-04-08 14:28] LABS: Hematocrit 42.2 % (42.0-52.0); Hemoglobin 14.2 g/dL (14.1-18.0); Immature Granulocytes % 0.4 %; Mean Corpuscular HGB Conc 33.6 g/dL (31.8-35.4); Mean Corpuscular Hemoglobin 30.6 pg (27.0-31.2); Mean Corpuscular Volume 90.9 fl (80-94); Nucleated Red Blood Cells % 0 %; Platelet Count 320 K/mm3 (142-424); Red Blood Count 4.64 M/mm3 (4.60-6.20); Red Cell Distribution Width-SD 48.8 fL; White Blood Count 9.1 K/mm3 (4.8-10.8)
[2025-04-08 15:20] LABS: Alanine Aminotransferase 24 U/L (12-78); Albumin Level 4.3 g/dl (3.5-5.0); Alkaline Phosphatase 73 U/L (38-126); Aspartate Amino Transferase 38 U/L (17-59); Bilirubin,Direct 0.4 mg/dl (0.0-0.4); Bilirubin,Indirect 1.3 mg/dL (0.0-0.9); Bilirubin,Total 1.7 mg/dl (0.2-1.3); Bilirubin,Unconjugated 1.4 mg/dL (0.0-1.1); Blood Urea Nitrogen 12 mg/dl (9-20); Calcium 8.8 mg/dl (8.4-10.2); Carbon Dioxide 27 mmol/L (22.0-30.0); Chloride 100 mmol/L (98-107); Cholesterol 188 mg/dl (140-200); Creatinine,Serum 0.80 mg/dl (0.66-1.25); Estimated Glomerular Filt Rate 102 ml/min (>60); GFR (African American) 123 ML/MIN (>60); Glucose 109 mg/dl (74-100); HDL Cholesterol 89 mg/dl (40-60); Magnesium 1.8 mg/dl (1.6-2.3); Sodium 136 mmol/L (136-145); Total Protein,Serum 7.4 g/dl (6.3-8.2); Triglycerides 106 mg/dl (30-150)
[2025-04-08 15:23] LABS: Anion Gap 12.1 mEq/L (5-15); Potassium 3.1 mmoL/L (3.5-5.1)
[2025-04-08 16:36] LABS: Free T4 (Free Thyroxine) 1.03 ng/dl (0.78-2.19)
[2025-04-08 16:50] LABS: Thyroid Stimulating Hormone 0.45 uIU/mL (0.465-4.68)
[2025-04-08 17:12] LABS: Vitamin B12 > 1000 pg/mL (239-931)
[2025-04-08 17:34] LABS: Folate 2.99 ng/mL
== END 2025-04-08 23:59 | disposition home or self-care (01) ==
LOC: LAB 13:42
PROVIDERS: PCP Nurse Practitioner; Visit Provider Nurse Practitioner
DX: R94.31 Abnormal electrocardiogram [ECG] [EKG] (principal); I10 Essential (primary) hypertension; R42 Dizziness and giddiness; H55.00 Unspecified nystagmus; K70.0 Alcoholic fatty liver; E80.4 Gilbert syndrome
CPT/HCPCS: 36415; 80048; 80061; 80076; 82607; 82746; 83735; 84439; 84443; 85025

== ENCOUNTER 2025-04-19 12:53 | Outpatient (CLI) | payer MEDICARE, MEDICAID, SELFPAY ==
--- NOTE | 2025-04-19 13:00 | CA_ITS ---
APPROVED REPORT EXAM: Comprehensive 2D, Doppler, and color-flow Echocardiogram Nurse First Assist: Josey Rucker RT(R) Ht: 5 ft 10 in Wt: 151lbs BSA: 1.85 BP: 122/90 mmHg Indications: dizziness, abn EKG 2D Dimensions EF AP4 57.30 % GL Strain -19.9 % M-Mode Dimensions RVDd 2.43 cm (0.9-2.6) LA Diam 3.30 cm (1.9-4.0) LVDd 5.19 cm (3.5-5.7) LVDs 3.72 cm (3.5-5.7) IVSd 0.75 cm (0.6-1.1) PWd 0.64 cm (0.6-1.1) EF (Teich) 54.30% FS 28.30% EDV (Teich) 128.90 mL ESV (Teich) 58.90 mL LV Diastology E Decel Time 213 (160-240 msec) E/A Ratio 0.9 Mitral Valve MV E Max Collin. 74.0 (40-130 cm/s) MV A Velocity 79.0 (40-130 cm/s) E/A Ratio 0.94 MV PHT 62.0 ms Left Ventricle The left ventricle is normal size. Left ventricular systolic function is normal. The left ventricular ejection fraction is within the normal range. There is increased left ventricular wall thickness. There is normal LV segmental wall motion. Transmitral Doppler flow pattern suggests impaired LV relaxation. LVEF is 55%. Right Ventricle The right ventricle is normal size. The right ventricular systolic function is normal. Atria The left atrium size is normal. The right atrium size is normal. There is no color Doppler evidence of interatrial shunt. Aortic Valve The aortic valve is mildly thickened. There is no hemodynamically significant aortic valvular stenosis. Mild aortic regurgitation is present. Mitral Valve The mitral valve is normal in structure. No evidence of mitral valve stenosis. Trace mitral regurgitation is present. Tricuspid Valve The tricuspid valve leaflets are thin and pliable. Trace tricuspid regurgitation. There is insufficient TR jet to estimate RVSP. Pulmonic Valve The pulmonary valve is grossly normal in structure. Trace pulmonic valve regurgitation is present. Great Vessels The aortic root is normal in size. IVC is normal in size and collapses >50% with inspiration. Pericardium There is no pericardial effusion. Other Information Study Quality: Technically Difficult Conclusion Normal biventricular systolic function. Mild AI. Electronically signed by : Geetha Gutiérrez MD 04/24/2025 20:58:37
== END 2025-04-19 23:59 | disposition home or self-care (01) ==
LOC: RT 12:54
PROVIDERS: PCP Nurse Practitioner; Visit Provider Nurse Practitioner
DX: I35.1 Nonrheumatic aortic (valve) insufficiency (principal); I10 Essential (primary) hypertension; R94.31 Abnormal electrocardiogram [ECG] [EKG]; R42 Dizziness and giddiness; H55.00 Unspecified nystagmus; K70.0 Alcoholic fatty liver; E80.4 Gilbert syndrome
CPT/HCPCS: 93306

== ENCOUNTER 2025-04-24 10:07 | Outpatient (CLI) | payer MEDICARE, MEDICAID, SELFPAY ==
[2025-04-24 12:58] LABS: Alanine Aminotransferase 18 U/L (12-78); Albumin Level 4.2 g/dl (3.5-5.0); Albumin/Globulin Ratio 1.5 (1.1-1.8); Alkaline Phosphatase 65 U/L (38-126); Anion Gap 15.8 mEq/L (5-15); Aspartate Amino Transferase 34 U/L (17-59); Bilirubin,Total 2.2 mg/dl (0.2-1.3); Blood Urea Nitrogen 5 mg/dl (9-20); Calcium 9.1 mg/dl (8.4-10.2); Carbon Dioxide 24 mmol/L (22.0-30.0); Chloride 101 mmol/L (98-107); Creatinine,Serum 0.80 mg/dl (0.66-1.25); Estimated Glomerular Filt Rate 102 ml/min (>60); GFR (African American) 123 ML/MIN (>60); Globulin 2.8 g/dL (1.3-3.2); Glucose 100 mg/dl (74-100); Potassium 4.8 mmoL/L (3.5-5.1); Sodium 136 mmol/L (136-145); Total Protein,Serum 7.0 g/dl (6.3-8.2)
== END 2025-04-24 23:59 | disposition home or self-care (01) ==
LOC: LAB 10:08
PROVIDERS: PCP Nurse Practitioner; Visit Provider Nurse Practitioner Family
DX: K70.0 Alcoholic fatty liver (principal); E80.4 Gilbert syndrome
CPT/HCPCS: 36415; 80053